=== PATIENT | male | born 1955 | race Caucasian/White ===

== ENCOUNTER 2019-12-09 06:50 | Outpatient (NON) | payer MEDICARE, OTHER, SELFPAY ==
[2019-12-09 18:38] LABS: SARS-CoV-2 RNA PCR Negative
== END 2019-12-09 06:51 ==
PROVIDERS: PCP Internal Medicine; Visit Provider Internal Medicine
DX: R68.89 Other general symptoms and signs (principal); Z20.828 Contact with and (suspected) exposure to other viral communicable diseases
CPT/HCPCS: 87635; C9803; U0003

== ENCOUNTER 2020-05-23 19:25 | Inpatient (IN) | payer MEDICARE, OTHER, SELFPAY ==
--- NOTE | ~2020-05-23 | XR_ITS ---
EXAMINATION: XR chest 1V portable INDICATION: Generalized chest pain TECHNIQUE: Portable AP chest at 2041 hours COMPARISON: 09/08/2017 FINDINGS: The lungs are free of acute opacities. Stable cardiomegaly is noted. There is no pleural ef fusion or pneumothorax. Median sternotomy wires are consistent with prior cardiac surgery. IMPRESSION: 1. Stable cardiomegaly. Reviewed, dictated and finalized at location A. INAL JUSTICE PROGRAM DIRECTOR IMPRESSION: 1. Stable cardiomegaly.
--- NOTE | ~2020-05-23 | CT_ITS ---
EXAMINATION: CT brain wo con INDICATION: Transient alteration of awareness COMPARISON: 05/26/2018 TECHNIQUE: Standard unenhanced head CT. The dose-length product (DLP) was 605.33 mGy-cm. The mA was a djusted according to patient size. Iterative reconstruction technique was employed. FINDINGS: There is no acute intraparenchymal hemorrhage. No evidence of mass lesion. No evidence of a cute infarction. There is mild periventricular and subcortical hypodensity probably related to small vessel ischemic disease. There is mild prominence of the sulci and ventricles related to cerebral atr ophy. Intracranial calcified cerebral atherosclerosis is noted. There are no extra-axial collections. There is no mass effect or midline shift. Changes in the globes are likely from ocular lens surgery. There is mild mucosal thickening of the paranasal sinuses. IMPRESSION: 1. No acute intracranial abnormality. 2. Age related findings. Reviewed, dictated and finalized at location A. ER DEVELOPMENT ENGINEER
--- NOTE | ~2020-05-23 | CT_ITS ---
EXAMINATION: CT facial bones wo con DATE: 05/23/2020 20:41 INDICATION: Facial pain, initial encounter TECHNIQUE: Computed tomography (CT) of the facial bones and maxillofacial region was performed withou t intravenous contrast. The dose-length product (DLP) was 497.66 mGy-cm. Automated exposure control a nd iterative reconstruction technique were employed. COMPARISON: None. FINDINGS: There are comminuted an displaced bilateral nasal bone fractures. There are 5 mm of rightwa rd deviation of the nasal septum. There is minimal opacification of the ethmoidal air cells. No addit ional facial fracture is identified. The globes are intact. The orbits are normal. There are fluid le vels in the maxillary sinuses. The bilateral ostiomeatal complexes are occluded. There is mild spondy losis of the visualized cervical spine. IMPRESSION: 1. Comminuted and displaced bilateral nasal bone fractures. 5 mm of rightward deviation of the nasal septum. Reviewed, dictated and finalized at location A. DRIVER IMPRESSION: 1. Comminuted and displaced bilateral nasal bone fractures. 5 mm of rightward d eviation of the nasal septum.
[2020-05-23 19:28] VITALS: BP 118/67; PULSE 64; RESP 16; TEMP 36.4; O2SAT 95
[2020-05-23 20:00] VITALS: BP 123/66; PULSE 66; RESP 13; O2SAT 98
--- NOTE | 2020-05-23 20:01 | ED.SYNCOPE ---
HPI - Syncope General Chief Complaint: Syncope Stated Complaint: fall-facial injury Time Seen by Provider: 05/23/20 19:32 Source: patient Mode of arrival: ambulatory Limitations: no limitations History of Present Illness HPI narrative: Patient is a 65-year-old male complaining of a syncopal episode prior to arrival. Patient states that he fell forward hitting his face on the ground, causing his nosebleed. According to his he is passed out twice over the past week. Patient states that his syncopal episodes only suddenly occur without any prior symptoms. Patient denies any headache, speech or visual disturbance, focal weakness, numbness, unsteady gait, chest pain, shortness of breath, abdominal pain, nausea, vomiting, diarrhea, fever or chills. Related Data Home Medications Medication Instructions Recorded Confirmed amitriptyline 10 mg tablet 10 mg PO ONCE 04/24/19 05/11/20 aspirin 81 mg tablet,delayed 81 mg PO DAILY 04/24/19 05/11/20 release brimonidine 0.15 % eye drops 1 drop EACH EYE Q8H 04/24/19 05/11/20 escitalopram oxalate 20 mg tablet 20 mg PO BID tablet 04/24/19 05/11/20 gabapentin 300 mg capsule 600 mg PO TID cap 04/24/19 05/11/20 insulin glargine 100 unit/mL (3 10 unit SUB-Q DAILY 04/24/19 05/11/20 mL) subcutaneous pen insulin lispro 100 unit/mL 1 sliding scale dose SUB-Q 04/24/19 05/11/20 subcutaneous solution USEASDIRECTD vancomycin 1.5 gram intravenous 1.5 gm IVPB Q24H 04/24/19 05/11/20 solution warfarin 3 mg tablet 3 mg PO DAILY 04/24/19 05/11/20 warfarin 4 mg tablet 4 mg PO DAILY 04/24/19 05/11/20 Allergies Allergy/AdvReac Type Severity Reaction Status Date / Time Sulfa (Sulfonamide Allergy Mild Hives Verified 05/10/20 14:34 Antibiotics) ibuprofen AdvReac Severe BAD RENAL Verified 05/10/20 14:34 FUNCTION Review of Systems Review of Systems: All systems reviewed & are unremarkable except as noted in HPI and below Constitutional: Constitutional: Denies body ache(s), Denies chills, Denies excessive sweating, Denies fatigue, Denies fever(s), Denies headache(s), Denies lethargy, Denies malaise, Denies weakness and Denies weight loss Eyes: Eyes: Denies blurry vision, Denies change in vision and Denies loss of vision ENT: Denies dizziness, Denies ear discharge, Denies headache(s), Denies lip swelling, Denies nasal congestion, Denies neck pain, Denies throat swelling and Denies tongue swelling Cardiovascular: Cardiovascular: Denies chest pain, Denies chest pain at rest, Denies chest pain with activity, Denies diaphoresis, Denies rapid heart rate, Denies edema, Denies irregular heart rhythm, Denies lightheadedness, Denies palpitations, Denies dyspnea and Denies dyspnea on exertion Respiratory: Respiratory: Denies chest congestion, Denies cough, Denies hemoptysis, Denies dyspnea and Denies dyspnea on exertion Gastrointestinal: Gastrointestinal: Denies abdominal pain, Denies melena, Denies hematochezia, Denies diarrhea, Denies nausea, Denies vomiting and Denies hematemesis Musculoskeletal: Musculoskeletal: Denies abnormal gait, Denies deformity, Denies joint swelling, Denies limited range of motion, Denies neck pain and Denies numbness Neurologic: Denies Abnormal speech present, Denies abnormal gait, Denies confusion, Denies dizziness, Denies headache(s), Denies focal weakness, Denies loss of vision, Denies numbness, Denies Other visual disturbances, Denies Sensory deficit (Neuro) and Denies weakness Psychiatric: Psychiatric: Denies confusion, Denies depression, Denies auditory hallucinations, Denies homicidal ideation and Denies suicidal ideation Endocrine: Endocrine: Denies cold intolerance, Denies excessive sweating, Denies fatigue, Denies heat intolerance and Denies palpitations Hematologic/Lymphatic: Hematologic/Lymphatic: Denies easy bleeding and Denies easy bruising Allergic/Immunologic: Allergic/Immunologic: Denies lip swelling, Denies throat swelling and Denies tongue swelling PMFSH
[2020-05-23 21:00] VITALS: BP 119/72; PULSE 66; RESP 14; O2SAT 99
[2020-05-23 21:00] LABS: Basophils Absolute Auto 0.1 K/mm3 (0.0-0.1); Basophils Percent Auto 0.9 % (0.2-1.2); Eosinophils Absolute Auto 0.3 K/mm3 (0-0.3); Eosinophils Percent Auto 3.7 % (0-4.4); Hematocrit 28.2 % (42.0-52.0); Hemoglobin 9.1 g/dL (14.0-18.0); Immature Granulocyte Absolute 0.02 K/mm3 (0.00-0.031); Immature Granulocyte Percent A 0.2 % (0-0.5); Lymphocytes Absolute Auto 1.89 K/mm3 (0.9-3.2); Lymphocytes Percent Auto 21.6 % (18.3-44.2); Mean Corpuscular HGB Conc 32.3 g/dl (32-36); Mean Corpuscular Hemoglobin 34.6 pg (26-34); Mean Corpuscular Volume 107.2 fl (80-100); Mean Platelet Volume 11.3 fl (7.4-10.4); Monocytes Absolute Auto 0.9 K/mm3 (0.1-0.6); Monocytes Percent Auto 10.7 % (2.6-8.5); Neutrophils Absolute Auto 5.5 K/mm3 (1.3-6.7); Neutrophils Percent Auto 62.9 % (45.5-73.1); Platelet Count Result 179 k/mm3 (150-375); Red Blood Count 2.63 M/mm3 (4.6-6.20); Red Cell Distribution Width 13.4 % (11.5-14.5); White Blood Count 8.8 K/mm3 (4.5-10.0)
[2020-05-23 21:10] LABS: Alanine Aminotransferase 31 U/L (4-50); Albumin Level 4.1 g/dL (3.5-5.1); Alkaline Phosphatase 71 U/L (38-126); Anion Gap 10 mmol/L (8-16); Aspartate Amino Transferase 47 U/L (17-59); Bilirubin,Total 0.4 mg/dL (0.2-1.3); Blood Urea Nitrogen 52 mg/dL (9-20); Calcium 8.2 mg/dL (8.4-10.2); Carbon Dioxide 26 mmol/L (22-30); Chloride 98 mmol/L (98-107); Estimated CRCL calculation 9 ml/min; Estimated Glomerular Filt Rate 7; Glucose 182 mg/dL (75-110); INR 1.9; Partial Thromboplastin Time 35.8 SECONDS (22.3-36.8); Prothrombin Time 22.1 Seconds (11.1-14.7); Sodium 134 mmol/L (137-145)
[2020-05-23 21:26] LABS: Troponin I 0.094 ng/mL (0.000-0.034)
--- NOTE | 2020-05-23 21:28 | ECG_ITS ---
Measurements Intervals [place] Rate: 64 P: -6 CO: 256 QRS: 94 QRSD: 140 T: 27 QT: 465 QTc: 482 Interpretive Statements SINUS RHYTHM WITH FIRST DEGREE AV BLOCK RIGHT AXIS DEVIATION RIGHT BUNDLE BRANCH BLOCK BASELINE ARTIFACT- I, II, III, AVR, AVL, AVF, V1 ABNORMAL ECG Electronically Signed On 05-24-2020 6:55:28 [employer] SALES AGENT by Destin Barragan D.O.
[2020-05-23 22:00] VITALS: BP 115/67; PULSE 63; RESP 14; O2SAT 96
[2020-05-23 23:00] VITALS: BP 115/65; PULSE 65; RESP 13; O2SAT 97
[2020-05-23] MEDS: HYDROcodone/acetaminophen (*CRX) 5-325 MG TABLET 1 TAB PO (23:18)
[2020-05-23] MEDS: ceFAZolin SODIUM 1 GM VIAL IV PUSH (23:21)
[2020-05-23 23:50] VITALS: BP 131/48; PULSE 64; RESP 16; TEMP 36; O2SAT 98; BMI 32.1
[2020-05-24] VITALS (17 sets, daily range): BP systolic 95–128; BP diastolic 43–69; PULSE 58–65; RESP 16–20; TEMP 36–36.4; O2SAT 97–100
[2020-05-24 01:27] LABS: Troponin I 0.088 ng/mL (0.000-0.034)
--- NOTE | 2020-05-24 02:52 | PM.IMHP ---
H&P: HPI History of Present Illness Date/Time: 05/24/20 04:00 Chief Complaint: Syncope Narrative: Haja Diego is a 65 year old male with a past medical history of end-stage renal disease on hemodialysis, chronic hypotension, CHF with preserved ejection fraction, coronary artery disease and insulin-dependent diabetes mellitus who presented to the ER after having a syncopal episode. The patient reports that over the last 2 weeks he has had 3 syncopal episodes. The 1st episode he was sitting on at [place] in and the next thing he knew he was on the floor. He does not know how long he was unconscious during that episode. He also had an episode where he was standing at his back door letting his dog out and when he woke up he was on the floor. On the evening of the the patient was at the local grocery store and was going to put his cart back in the cart return. He did not have any warning and the next thing he knew he woke up on the ground. When he woke up he reported that he felt a little bit tired but just wanted to get up and go home. The patient thinks that his reported to in that he was passed out for about 5 minutes. The patient reports that he is usually back at his baseline when he wakes up. He denies any chest pain, palpitations, shortness of breath. He had had multiple other episodes of syncope in the past but not nearly this frequently. He had 30 day Holter monitor performed by his ultrasound spec Dr. Redding performed late last year. He also had a cardiac catheterization in January 2020 that demonstrated no acute process per the patient's report. His last hemoglobinBut he does not know with the exact number was. He was supposed to have an outpatient hemoglobin A1c at the beginning of June as this is when his insurance will pay for it. He reports that his glucoses over the last 2 weeks have been running below 200. His insulin pump was increased from 0.8 units an hour to 0.9 units/hour 2 and half to 3 weeks ago. His glucoses within target range on presentation to the ER. He reports that he was started on some additional phosphate binders recently due to persistent hyperkalemia. On arrival to the ER the patient's potassium was within normal limits. Review of Systems Review of Systems: Narrative: 12 systems were reviewed with pertinent positives and negatives per HPI. Except as documented in the HPI, all other systems were reviewed and are negative. 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 The patient is on the renal transplant list at [place]. Wednesday managed by Dr. Aguiar Glaucoma Hyperlipidemia Memory loss or impairment Myocardial infarction 2003 and 2010 Surgical History Surgical History (Updated 05/24/20 @ 03:47 by Erma Schmitz DO) H/O inguinal hernia repair At age 6 History of bilateral cataract extraction History of heart artery stent X8 prior to CABG History of nasal surgery 1988 History of pericardiectomy Hx of CABG 3 vessel CABG [address] [facility] Status post open reduction with internal fixation of fracture Left hand fracture in 1981 Family History Family History (Updated 05/24/20 @ 03:55 by Erma Schmitz DO) Sibling Family history of cardiac disorder Congestive heart fa
[2020-05-24 03:05] LABS: Glucose Point of Care 168 (65-105)
--- NOTE | 2020-05-24 04:54 | PC.NURSE ---
This patient, Haja Diego, was admitted to IMU Room 206-02. Patient/family oriented to hospital policies and general routines including ID bracelet, bed and alarms, visiting hours, pain management, procedures, bathroom and other care routines, personal items, smoking policy, room service/diet, and visiting hours. Information on how to activate the Rapid Response Team has been discussed. Patient/Family are encouraged to report perceived risks to care and to ask questions if they do not understand what they are told or what they should do.
[2020-05-24 05:39] LABS: Troponin I 0.095 ng/mL (0.000-0.034)
[2020-05-24 06:12] LABS: Anion Gap 11 mmol/L (8-16); Blood Urea Nitrogen 57 mg/dL (9-20); Calcium 8.2 mg/dL (8.4-10.2); Carbon Dioxide 25 mmol/L (22-30); Chloride 99 mmol/L (98-107); Estimated CRCL calculation 10 ml/min; Estimated Glomerular Filt Rate 6; Glucose 169 mg/dL (75-110); Magnesium 1.8 mg/dL (1.6-2.3); Phosphorus 5.3 mg/dL (2.5-4.5); Potassium 3.5 mmol/L (3.4-5.0); Sodium 135 mmol/L (137-145)
[2020-05-24] MEDS: MIDODRINE HCL 2.5 MG TABLET 5 MG PO ×3 (08:36→17:35)
[2020-05-24] MEDS: PANTOPRAZOLE 40 MG TABLET PO (08:36)
[2020-05-24] MEDS: CALCIUM ACETATE 667 MG TABLET PO (08:36)
[2020-05-24] MEDS: GABAPENTIN 300 MG CAPSULE 600 MG PO ×3 (08:36→17:35)
[2020-05-24] MEDS: allopurinoL 100 MG TABLET PO (08:37)
--- NOTE | 2020-05-24 09:05 | PM.CNNEP ---
Assessment and Plan Assessment and plan (1) Chronic anticoagulation: Code(s): Z79.01 - senior care (current) use of anticoagulants Status: Acute (2) ESRD (end stage renal disease) on dialysis: Code(s): N18.6 - End stage renal disease; Z99.2 - Dependence on renal dialysis Status: Acute Assessment and Plan: C/O BY OCC INTRADIALYTIC HYPOTENSION- ALSO HAS CHRONIC HYPOTENSION AND TAKES MIDODRINE 5MG TID (3) Fracture of nasal bones, initial encounter for open fracture: Code(s): S02.2XXB - Fracture of nasal bones, initial encounter for open fracture Status: Acute (4) Obesity (BMI 30.0-34.9): Code(s): E66.9 - Obesity, unspecified Status: Acute (5) Syncope and collapse: Code(s): R55 - Syncope and collapse Status: Acute (6) Anemia: Qualifiers: Anemia type: unspecified type Qualified Code(s): D64.9 - Anemia, unspecified Code(s): D64.9 - Anemia, unspecified Status: Acute (7) Atherosclerotic heart disease of [place] coronary artery without angina pectoris: Code(s): I25.10 - Atherosclerotic heart disease of [place] coronary artery without angina pectoris Status: Acute (8) Diabetic polyneuropathy associated with type 1 diabetes mellitus: Code(s): E10.42 - Type 1 diabetes mellitus with diabetic polyneuropathy Status: Acute (9) Secondary hypophosphatemia: Code(s): E83.39 - Other disorders of phosphorus metabolism Status: Acute Additional Plan 1. hd today 2. holding coumadin given nasal fracture and poss need for pacemaker -i agree that the sudden syncope without warning seems much more likely cardiac related. 3. avoid hypotension 4. give epogen/ Retacrit. 5. his phos binding meds used to be CaAcetate/ PHOSLO THEN AURYXIA THEN VELPHORO- ALL FAILED BUT NOW ON FOSRENOL WITH GREAT RESULT- PHOS DOWN FROM 9 TO 10 TO 5.9 I PTH STILL TOO HIGH 1200 BUT I COULD NOT PUT HIM SENSIPAR B/C OF LOW CALCIUM- I JUST CHECKED W HIS HD CLINIC AND HIS HECTOROL IS ON HOLD SINCE EARLY APRIL 27. HE TAKES MIDODRINE PRE DIALYSIS 5MG TID. History of Present Illness Reason for Consult Consult date: 05/24/20 Reason for consult: Other (65 yo wm on dialysis for esrd due to dmii and atherosclerotic dz - hd about 5-6 years at [facility] 1ST SHIFT [phone] OVER THE LAST 30 DAYS HE HAS HAD 2-3 EPISODES OF PASSING OUT WITHOUT ANY WARNING AND NO PRESYNCOPE SX'S OR SEIZURE ACTIVITY.) Chief Complaint Chief complaint: Syncope, Bilat. Nasal Bone Fractures, Review of Systems Cardiovascular: Comments: specifically denies any chest pain and palpitations. also had holter monitor done within last 1-3 months for similar presentation but was negative. Denies any diarrhea, cramping. 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 The patient is on the renal transplant list at [place]. Wednesday managed by Dr. Aguiar Glaucoma Hyperlipidemia Memory loss or impairment Myocardial infarction 2003 and 2010 Surgical History Surgical History (Updated 05/24/20 @ 03:47 by Erma Schmitz DO) H/O inguinal hernia repair At age 6 History of bilateral cataract extraction History of heart artery stent X8 prior to CABG History of nasal surgery 1988
--- NOTE | 2020-05-24 10:39 | PHAR ---
THE FOLLOWING HOME MEDS HAVE BEEN VERIFIED BY PHARMACY: VELPHORO (SUCROFERRIC OXYHYDROXIDE) 500 MG CHEWABLE TABLETS AURYXIA (FERRIC CITRATE) 210 MG TABLETS LANTHANUM CARBONATE 1000 MG CHEWABLE TABLETS VELTASSA (PATIROMER) 8.4 GM PACKETS FOR ORAL SUSPENSION
[2020-05-24 11:41] LABS: Hepatitis B Surface Antigen Negative (Negative)
[2020-05-24 11:47] LABS: HAV RESULT Negative (Negative); Hepatitis B Core IgM Result Negative (Negative)
[2020-05-24 11:59] LABS: Hepatitis C Virus Antibody Negative (Negative)
--- NOTE | 2020-05-24 12:22 | WPDCN ---
Assessment and Plan Assessment and plan (1) Fracture, nose, open: Code(s): S02.2XXB - Fracture of nasal bones, initial encounter for open fracture Status: Acute Additional Plan Pt may gradually remove dried blood from his nose. Follow up with Dr Campuzano early next week. HPI Data of Consult Date/Time: 05/24/20 12:22 Requesting Physician: Erma Schmitz DO Primary Care Provider: Cristhian Muhammad DO Consult Narrative Narrative: Haja Diego is a 65 year old male admitted after his 2nd syncopal episode in a week. Fell this time in a parking lot while shopping with his . Now has a nasal fracture from striking the ground with his face. Is an end stage diabetic with elevated creatinine of 7.9. Is on warfarin with INR of 1.9. CT facial bones evaluated indicating bilateral displaced nasal side wall fractures and septal deviation to the right. Known history of cardiac disease. History of remote nasal fracture with septal surgery. He is not certain if one airway was more patent than the other. Is alert at this time I'm seeing him. present. Burial Agent has just left the room. 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 The patient is on the renal transplant list at [place]. Wednesday managed by Dr. Aguiar Fracture, nose, open Glaucoma Hyperlipidemia Memory loss or impairment Myocardial infarction 2003 and 2010 Surgical History Surgical History (Updated 05/24/20 @ 03:47 by Erma Schmitz DO) H/O inguinal hernia repair At age 6 History of bilateral cataract extraction History of heart artery stent X8 prior to CABG History of nasal surgery 1988 History of pericardiectomy Hx of CABG 3 vessel CABG 2010 at [facility] Status post open reduction with internal fixation of fracture Left hand fracture in 1981 Family History Family History (Updated 05/24/20 @ 03:55 by Erma Schmitz DO) Sibling Family history of cardiac disorder Congestive heart failure Prolonged QT interval 1 sister Sudden cardiac Another sister Acute myocardial infarction Sister Leonie Mother Diabetes mellitus Aneurysm Father Cerebrovascular accident Sibling Asthma Sister Arin Social History Social History (Updated 05/24/20 @ 03:58 by Erma Schmitz DO) Social History: He has been for 37 years. He has 2 children who are healthy. He used to rarely drinks alcohol and only in moderation. He is retired from the [employer] department of a [employer] - [place]. Primary care physician: Dr. Cristhian Muhammad Code status: Full code Surrogate decision maker: Heydi () Smoking packs per day: 2 Smoking cigarettes per day: 40.0 Years smoked: 2 Smoking pack-years: 4.00 Smoking status: Former smoker Tobacco type: cigarettes Second hand tobacco smoke exposure: No Smoking end date: 03/22/80 Alcohol intake: former Drinks per week: 7 Substance use: never Spiritual care concerns: No Meds Home Medications and Allergies Home Medications Medication Instructions Recorded Confirmed Type aspirin 81 mg tablet,delayed 81 mg PO DAILY 04/24/19 05/24/20 History release escitalopram oxalate 20 mg tablet 20 mg PO DAILY tablet
--- NOTE | 2020-05-24 12:30 | PM.CNCAR ---
Assessment and Plan Additional Plan This is a 65-year-old man with underlying coronary artery disease, surgical revascularization as detailed above he has been having recurrent syncopal episodes for several months which are now increasing in frequency he had a significant injury to his nose fracturing the nose and prompting admission to the hospital. His electrocardiogram does show evidence of conduction system disease with first-degree AV block and right bundle branch block with left posterior fascicular block. It is therefore highly highly likely that he is having bradyarrhythmia/pauses prompting the syncopal episodes. While the patient is in the hospital I believe we should keep him on telemetry to of course to ensure that we do not identify pathology that would explain this syncope. If the patient is discharged I would recommend repeating a 30 day event monitor as the events are occurring with significant frequency now we should be able to identify the etiology with another 30 day monitor. I believe he should be taken off of warfarin there is no obvious cardiovascular indication at this time for ongoing anticoagulation and given his syncope and falling he is at high risk for hemorrhagic complications. A suppose I would also recommend stopping the low-dose of diltiazem that he is taking Jorge Luis Redding MD [facility] History of Present Illness History of Present Illness Consult date/time: 05/24/20 12:30 Reason For Visit: Syncope, Bilat. Nasal Bone Fractures, Narrative: This is a very pleasant 65-year-old man with known coronary artery disease I am seeing him at the request of the hospitalist because of syncopal episode. Patient is known to me with his ischemic heart disease and has been followed in the office for about 10 years. He has been doing relatively well cardiac gates until several months ago when he began to experience syncopal episodes. He mentioned this to me during an office visit in the fall. We had him wear a 30 day event monitor and did not find any pathologic or problematic arrhythmias. He was in sinus rhythm with first-degree AV block and in intraventricular conduction delay but no pauses that would explain a syncopal episode. His states that in the last 3 weeks he has had at least 3 additional syncopal episodes he came in yesterday he was at the grocery store shopping with his he was in the parking lot after they finished to put the cart in the [place] in the parking lot and he abruptly had a loss of consciousness falling on his face and fracturing his nose. She called 911 he was brought to the emergency room evaluated and admitted. The patient is systemically anticoagulated with warfarin and is being managed by his PCP. He is on warfarin because of a history of lower extremity DVT but he and his tell me that episode was about 10 years ago. He does not have a cardiac reason to be anticoagulated. Regarding his coronary artery disease the patient underwent emergency right coronary intervention about 10 years ago in the setting of an acute inferior wall infarction which was successful. He then presented with ischemic symptoms was found to have worsening multivessel coronary disease in 2015 and was referred for surgical revascularization. He received an internal mammary graft to the LAD a radial graft to the obtuse marginal and a saphenous vein graft to the posterior descending artery. He later in 2015 had some or ischemic she chest pain he was found to have a stenosis in his circumflex distal to the anastomosis of his OM radial artery graft and underwent angioplasty of this lesion. The lesion was technically difficult to balloon dilate and therefore was not treated with stenting. His other major comorbidity has been chronic kidney disease which has been steadily worsening he now is on kidney dialysis for about 3 years and is being evaluated has been evaluated by the transplant service at [facility]. He is on the transpla
[2020-05-24] MEDS: calcitrioL 0.25 MCG CAPSULE 1 MCG PO (12:54)
[2020-05-24] MEDS: ESCITALOPRAM OXALATE 10 MG TABLET 20 MG PO (12:54)
--- NOTE | 2020-05-24 16:12 | PM.IMPN ---
Progress Note: A&P Assessment and Plan (1) Syncope and collapse: Code(s): R55 - Syncope and collapse Status: Acute (2) Fracture of nasal bones, initial encounter for open fracture: Code(s): S02.2XXB - Fracture of nasal bones, initial encounter for open fracture Status: Acute Assessment and Plan: 05/24/20 16:12 patient is 65-year-old male with history of end-stage renal disease on hemodialysis seen by his medical voucher clerk and will have x-ray gel dialysis, patient been having recurrent syncopal episode and recently in 1 week he has had 2 syncopal episode with collapse yesterday patient while in the grocery parking lot had a syncopal episode fell forward on his face and has a nasal fracture patient started on cefazolin to prevent any infection seen by plastic surgeon and will follow-up in 1 week, patient seen by structural layout worker and patient has been evaluated in the past with a Holter monitor without any diagnosis but this time structural layout worker suspect the patient may have a bradycardiac arrhythmia resulting in syncopal episodes will monitor patient on telemetry while in the hospital and patient will be discharged home on Holter monitor to reassess the rhythm and any syncopal episodes. Patient is clinically stable will continue to monitor and further recommendation to follow. Patient is on chronically anticoagulated with a warfarin seen by structural layout worker is recommended to stop the anticoagulation as patient has no indication in terms of cardiovascular and patient is high risk a cerebral injury with recurrent syncopal episode with collapse, also recommended to stop low-dose diltiazem (3) ESRD (end stage renal disease) on dialysis: Code(s): N18.6 - End stage renal disease; Z99.2 - Dependence on renal dialysis Status: Acute Assessment and Plan: Patient seen by Nephrology and will have scheduled dialysis (4) Chronic anticoagulation: Code(s): Z79.01 - ct scan technician (current) use of anticoagulants Status: Acute Assessment and Plan: Seen by structural layout worker recommending to stop anticoagulation. Additional Plan The patient has had recurrent syncope and collapse. Given the patient's symptoms I most concern for cardiogenic cause of the patient's syncope. His orthostatic vital signs were normal. Patient has not had any evidence of cardiac arrhythmia since admission the hospital. He had had a prior 30 day heart monitor that did not demonstrate significant arrhythmias per his report. Will consult cardiology for further recommendations given the increasing frequency of syncope. Will continue to monitor the patient's cardiac rhythm on telemetry. The patient does have open fracture of his nasal bones with rightward deviation. The patient technically a trauma patient given the open fracture. Over plastic surgery has agreed to evaluate the patient. Given the patient's syncopal events I do not feel comfortable providing surgical clearance at this time of will await further recommendations from Cardiology. The patient's Coumadin and aspirin on hold in the event of possible surgical intervention. Nephrology has been consulted for management of hemodialysis. The patient has been admitted as observation status. This document was completed by using [employer] speech recognition software, therefore, beveling machine operator variances may occur. Despite proof reading and review of records errors may persist. Subjective Date/time seen: 05/24/20 16:12 patient is 65-year-old male with history of end-stage renal disease on hemodialysis seen by his medical voucher clerk and will have x-ray gel dialysis, patient been having recurrent syncopal episode and recently in 1 week he has had 2 syncopal episode with collapse yesterday patient while in the grocery parking lot had a syncopal episode fell forward on his face and has a nasal fracture patient started on cefazolin to prevent any infection seen by plastic surgeon and will follow-up in
[2020-05-24] MEDS: MIRTAZAPINE 15 MG TABLET PO (20:52)
[2020-05-24 21:29] LABS: Glucose Point of Care 234 (65-105)
[2020-05-24] MEDS: MELATONIN 3 MG TABLET PO (23:37)
[2020-05-25] VITALS (28 sets, daily range): BP systolic 110–142; BP diastolic 58–74; PULSE 57–79; RESP 16–20; TEMP 35.5–37.2; O2SAT 97–100
[2020-05-25 05:47] LABS: Albumin Level 3.8 g/dL (3.5-5.1); Anion Gap 12 mmol/L (8-16); Blood Urea Nitrogen 71 mg/dL (9-20); Calcium 8.2 mg/dL (8.4-10.2); Carbon Dioxide 24 mmol/L (22-30); Chloride 101 mmol/L (98-107); Estimated CRCL calculation 8 ml/min; Estimated Glomerular Filt Rate 5; Glucose 117 mg/dL (75-110); Potassium 4.1 mmol/L (3.4-5.0); Sodium 137 mmol/L (137-145)
--- NOTE | 2020-05-25 07:31 | PM.PNNEP ---
Progress Note: A&P Assessment and Plan (1) Fracture, nose, open: Code(s): S02.2XXB - Fracture of nasal bones, initial encounter for open fracture Status: Acute (2) Chronic anticoagulation: Code(s): Z79.01 - bed bug exterminator (current) use of anticoagulants Status: Acute (3) ESRD (end stage renal disease) on dialysis: Code(s): N18.6 - End stage renal disease; Z99.2 - Dependence on renal dialysis Status: Acute (4) Fracture of nasal bones, initial encounter for open fracture: Code(s): S02.2XXB - Fracture of nasal bones, initial encounter for open fracture Status: Acute (5) Anemia: Qualifiers: Anemia type: unspecified type Qualified Code(s): D64.9 - Anemia, unspecified Code(s): D64.9 - Anemia, unspecified Status: Acute (6) Atherosclerotic heart disease of [place] coronary artery without angina pectoris: Code(s): I25.10 - Atherosclerotic heart disease of [place] coronary artery without angina pectoris Status: Acute (7) 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 pt was not able to get dialysis yesterday- will be this am and heparin free 2. no further Calcitriol- was given a dose yesterday to substitute for in-cente dialyais HECTOROL 3. REGLAN 5MG IV Q 6HRS X 2 DOSES AND THEN PRN -ALSO ENCOURAGE PT TO SPIT. 4. PT TO GET AN EVENT MONITOR PLACED. 5. AVOID MEDS WHICH INTERFER W HEART RHYTHM HOPEFULLY HOME LATER- HE IS CLEAR FROM MY STANDPT. Time Spent With Patient Time with patient: 15 - 25 minutes Subjective Date/time seen: 05/25/20 07:31- pt w nausea overnight. nurse did report some prolongation of the QTC interval Exam HENMT: Head: periorbital ecchymosis General nose exam: Other nasal findings present (abrasion on bridge of nose ) Chest: Chest palpation & inspection: normal inspection of the chest Breast/axilla inspection: normal inspection of the breasts GI: Inspection: normal to inspection GI Palp: Yes Other GI palpation findings present (not distended and not ttp) Auscultation: abnormal bowel sounds (hypoactive) Extrem: General: normal to inspection Objective Data Vital Signs Vital Signs: Vital Signs - 24 hr 05/24/20 08:00 05/24/20 10:00 05/24/20 12:00 Temperature 36.2 C L Pulse Rate 61 65 60 Respiratory Rate 16 Blood Pressure 117/63 Pulse Oximetry 97 05/24/20 13:00 05/24/20 14:00 05/24/20 16:00 Temperature 36.4 C L 36.2 C L Pulse Rate 65 64 64 Respiratory Rate 16 18 Blood Pressure 128/69 122/58 L Pulse Oximetry 100 98 05/24/20 17:47 05/24/20 20:00 05/24/20 22:00 Temperature 36.0 C L Pulse Rate 64 61 58 L Respiratory Rate 16 Blood Pressure 106/57 L Pulse Oximetry 100 05/24/20 23:39 05/24/20 23:45 05/25/20 00:00 Temperature 36.3 C L Pulse Rate 61 61 57 L Respiratory Rate 20 20 Blood Pressure 95/43 L Pulse Oximetry 100 100 05/25/20 01:47 05/25/20 03:17 05/25/20 03:19 Temperature 36.4 C Pulse Rate 58 L 71 71 Respiratory Rate 20 20 Blood Pressure 124/60 Pulse Oximetry 97 97 05/25/20 04:00 05/25/20 06:00 Temperature Pulse Rate 63 73 Respiratory Rate Blood Pressure Pulse Oximetry Intake/Output Intake/Output: Intake & Output 05/22/20 05/23/20 05/24/20 05/25/20 23:59 23:59 23:59 23:59 Intake Total 1060 200 Output Total 0 0 Balance 1060 200 Meds/Results Medications: Active Medications Generic Name Dose Route Start Last Admin Trade Name Freq PRN Reason Stop Dose Admin Allopurinol 100 mg 05/24/20 08:00 05/24/20 08:37 Allopurinol 100 Mg Tablet PO 100 mg DA
[2020-05-25] MEDS: METOCLOPRAMIDE HCL INJ 10 MG/2 ML VIAL 5 MG IV PUSH (08:54)
[2020-05-25] MEDS: allopurinoL 100 MG TABLET PO (09:17)
[2020-05-25] MEDS: ESCITALOPRAM OXALATE 10 MG TABLET 20 MG PO (09:17)
[2020-05-25] MEDS: PANTOPRAZOLE 40 MG TABLET PO (09:17)
[2020-05-25] MEDS: GABAPENTIN 300 MG CAPSULE 600 MG PO (09:17)
--- NOTE | 2020-05-25 09:17 | PM.PNCARD ---
Progress Note: A&P Additional Plan 65-year-old man with: Recurrent syncope I suspect this is resulting from Louie arrhythmias given his history of coronary disease and ECG evidence of conduction system disease with first-degree AV block and bifascicular block. We however cannot justify a pacemaker unless we see Louie arrhythmias that would explain this. I am going to stop his diltiazem at this point as I mentioned above. His warfarin should also be. He does not have a cardiac reason for lifelong anticoagulation. I am going to have him come to the office on Wednesday for a 2nd 30 day event monitor as he and his state these episodes are now happening once or twice per week we should not have difficulty establishing a diagnosis and avoid placing an implanted loop recorder in him. I will see him in follow-up after this data has been collected or if we see pathologic Louie arrhythmias that would warrant pacing. Jorge Luis Redding MD [facility] Subjective Date/time seen: 05/25/20 09:17 Interval history: Follow-up visit in this 65-year-old man with coronary artery disease now with recurrent syncopal episodes which have not been explained. Feels well this morning is planning to be discharged after hemodialysis. Telemetry has not demonstrated any arrhythmias since admission which would create syncope. Because of his conduction system disease I have recommended stopping his diltiazem. He is on a low dosage of this but with recurrent syncope this drug should be stopped Exam Const: General: comfortable and no acute distress HENMT: Mouth: Yes moist mucous membranes Eyes: Sclera: sclerae normal Pupils: Equal, round and reactive pupils present Neck: Neck: supple and no JVD Resp: Effort & Inspection: normal respiratory effort Auscultation: clear to auscultation bilaterally Cardio: Rate: regular rate Rhythm: regular rhythm GI: GI Palp: Yes Soft to palpation Auscultation: normal bowel sounds Skin: General skin exam: normal color Neuro: Cognition (Neuro): normal cognition Extrem: General: normal to inspection Objective Data Vital Signs Vital Signs: Vital Signs - 24 hr 05/24/20 10:00 05/24/20 12:00 05/24/20 13:00 Temperature 36.4 C L Pulse Rate 65 60 65 Respiratory Rate 16 Blood Pressure 128/69 Pulse Oximetry 100 05/24/20 14:00 05/24/20 16:00 05/24/20 17:47 Temperature 36.2 C L Pulse Rate 64 64 64 Respiratory Rate 18 Blood Pressure 122/58 L Pulse Oximetry 98 05/24/20 20:00 05/24/20 22:00 05/24/20 23:39 Temperature 36.0 C L 36.3 C L Pulse Rate 61 58 L 61 Respiratory Rate 16 20 Blood Pressure 106/57 L 95/43 L Pulse Oximetry 100 100 05/24/20 23:45 05/25/20 00:00 05/25/20 01:47 Temperature Pulse Rate 61 57 L 58 L Respiratory Rate 20 Blood Pressure Pulse Oximetry 100 05/25/20 03:17 05/25/20 03:19 05/25/20 04:00 Temperature 36.4 C Pulse Rate 71 71 63 Respiratory Rate 20 20 Blood Pressure 124/60 Pulse Oximetry 97 97 05/25/20 06:00 05/25/20 08:57 Temperature Pulse Rate 73 Respiratory Rate Blood Pressure Pulse Oximetry 97 Intake/Output Intake/Output: Intake & Output 05/22/20 05/23/20 05/24/20 05/25/20 23:59 23:59 23:59 23:59 Intake Total 1060 200 Output Total 0 0 Balance 1060 200 Meds/Results Medications: Active Medications Generic Name Dose Route Start Last Admin Trade Name Freq PRN Reason Stop Dose Admin Allopurinol 100 mg 05/24/20 08:00 05/25/20 09:17 Allopurinol 100 Mg Tablet PO 100 mg DAILY@0800 ESTHER Administration Escitalopram Oxalate 20 mg 05/24/20 09:00 05/24/20 12:54 Escitalopram Oxalate 10 Mg Tablet PO 20 mg DAILY ESTHER Administration Gabapentin 600 mg 05/24/20 09:00 05/25/20 09:17 Gabapentin 300 Mg Capsule PO 600 mg TID ESTHER Administration Albumin Human 50 mls @ 999 mls/hr 05/24/20 09:29 Albutein IVPB 05/25/20 09:30 Q10M PRN HYPOTENSION Cefazolin Sodium 2
[2020-05-25] MEDS: MIDODRINE HCL 2.5 MG TABLET 5 MG PO (09:18)
[2020-05-25 09:19] LABS: Glucose Point of Care 157 (65-105)
[2020-05-25] MEDS: EPOETIN ALFA-EPBX 20,000 UNITS/ML VIAL 20000 UNITS IV PUSH (11:54)
--- NOTE | 2020-05-25 14:32 | PC.NURSE ---
Patient returned to room from dialysis. Oriented x4. No complaints of chest pain/shortness of breath. VS: bp 117/61, r 16, hr 79, temp 98.1.
[2020-05-25 14:33] LABS: Glucose Point of Care 85 (65-105)
--- NOTE | 2020-05-25 14:49 | PM.DS ---
DS: Admitting Diagnosis Admitting Diagnosis Admitting Diagnosis: Chief Complaint: Passed out again DS: Discharge Diagnosis Discharge Diagnosis (1) Syncope and collapse: Code(s): R55 - Syncope and collapse Status: Acute (2) Fracture of nasal bones, initial encounter for open fracture: Code(s): S02.2XXB - Fracture of nasal bones, initial encounter for open fracture Status: Acute Assessment and Plan: 05/24/20 16:12 patient is 65-year-old male with history of end-stage renal disease on hemodialysis seen by his compliance paralegal and will have x-ray gel dialysis, patient been having recurrent syncopal episode and recently in 1 week he has had 2 syncopal episode with collapse yesterday patient while in the grocery parking lot had a syncopal episode fell forward on his face and has a nasal fracture patient started on cefazolin to prevent any infection seen by plastic surgeon and will follow-up in 1 week, patient seen by commissary officer and patient has been evaluated in the past with a Holter monitor without any diagnosis but this time commissary officer suspect the patient may have a bradycardiac arrhythmia resulting in syncopal episodes will monitor patient on telemetry while in the hospital and patient will be discharged home on Holter monitor to reassess the rhythm and any syncopal episodes. Patient is clinically stable will continue to monitor and further recommendation to follow. Patient is on chronically anticoagulated with a warfarin seen by commissary officer is recommended to stop the anticoagulation as patient has no indication in terms of cardiovascular and patient is high risk a cerebral injury with recurrent syncopal episode with collapse, also recommended to stop low-dose diltiazem (3) ESRD (end stage renal disease) on dialysis: Code(s): N18.6 - End stage renal disease; Z99.2 - Dependence on renal dialysis Status: Acute Assessment and Plan: Patient seen by Nephrology and will have scheduled dialysis (4) Chronic anticoagulation: Code(s): Z79.01 - half-way (current) use of anticoagulants Status: Acute Assessment and Plan: Seen by commissary officer recommending to stop anticoagulation. DS: Summary Hospital Course Reason for hospitalization: Chief Complaint: Passed out again Narrative: Haja Diego is a 65 year old male with a past medical history of CHF, coronary artery disease, first-degree AV block, and multiple falls and a family history of short QT who presented to the ER for 2nd time within the last 4 days for recurrence syncope. The patient's syncope is suspected to be cardiogenic in nature. The patient had previously had a 30 day event monitor that did not demonstrate any events but over the last 3 weeks his episodes of syncope a become much more frequent. He has now had 4 5 episodes of syncope within the last 2 weeks. On May 24 the resulted in a open nasal fracture. The patient was monitored until the and was discharged home with a plan for 30 day event monitor to be placed on 05/27/2020. However, the patient was standing in his kitchen today and had a syncopal episode. He fell and hit his face again. He had a loss of consciousness lasting approximately 1-2 minute. The patient reports that his glucose was low prior to his syncopal event but he had time to drink despite before had a syncopal event. His glucose when he arrived to the ER was 240. When he came to he was back to his normal mental status/alert oriented x3. He denies any chest pain or palpitations prior to his syncopal event. During his last hospitalization is Cardizem was discontinued. His COVID was also discontinued as he had no cardiac indication for lifelong anticoagulation. The patient is concerned because he has a family history of prolonged QT. He has multiple family members including siblings and nieces and nephews who have pacemakers and defibrillators in place. Patient does not want to be discharged home t
== END 2020-05-25 15:30 | disposition home or self-care (01) | DRG 312 ==
LOC: ANHED 22:15 → ANHIMU 22:33
PROVIDERS: Internal Medicine Nephrology; Admitting Provider Internal Medicine; Emergency Provider Emergency Medicine; PCP Internal Medicine; Visit Provider Family Medicine
DX: R55 Syncope and collapse (principal); N18.6 End stage renal disease; S02.2XXB Fracture of nasal bones, initial encounter for open fracture; I13.2 Hypertensive heart and chronic kidney disease with heart failure and with stage 5 chronic kidney disease, or end stage renal disease; I50.32 Chronic diastolic (congestive) heart failure; E13.22 Other specified diabetes mellitus with diabetic chronic kidney disease; S00.81XA Abrasion of other part of head, initial encounter; S60.512A Abrasion of left hand, initial encounter; S60.511A Abrasion of right hand, initial encounter; I25.10 Atherosclerotic heart disease of native coronary artery without angina pectoris; I44.0 Atrioventricular block, first degree; D63.1 Anemia in chronic kidney disease; E78.5 Hyperlipidemia, unspecified; R41.3 Other amnesia; E13.319 Other specified diabetes mellitus with unspecified diabetic retinopathy without macular edema; E13.42 Other specified diabetes mellitus with diabetic polyneuropathy; E13.43 Other specified diabetes mellitus with diabetic autonomic (poly)neuropathy; K31.84 Gastroparesis; I95.89 Other hypotension; E66.9 Obesity, unspecified; Z68.32 Body mass index [BMI] 32.0-32.9, adult; H40.9 Unspecified glaucoma; W18.30XA Fall on same level, unspecified, initial encounter; Z91.81 History of falling; Z99.2 Dependence on renal dialysis; Z79.4 Long term (current) use of insulin; Z96.41 Presence of insulin pump (external) (internal); Z79.01 Long term (current) use of anticoagulants; Z79.82 Long term (current) use of aspirin; Z82.49 Family history of ischemic heart disease and other diseases of the circulatory system; Z86.718 Personal history of other venous thrombosis and embolism; Z86.73 Personal history of transient ischemic attack (TIA), and cerebral infarction without residual deficits; Z87.891 Personal history of nicotine dependence; Z98.42 Cataract extraction status, left eye; Z98.41 Cataract extraction status, right eye
CPT/HCPCS: 36415; 70450; 70486; 71045; 80048; 80053; 80069; 80074; 82948; 83735; 84100; 84484; 85025; 85610; 85730; 93005; 96374; 99285; A9270; G0257; G0378; J0690; J2765; J7030; Q5106

== ENCOUNTER 2020-05-26 16:08 | Observation (INO) | payer MEDICARE, OTHER, SELFPAY ==
[2020-05-26] VITALS (8 sets, daily range): BP systolic 92–169; BP diastolic 35–88; PULSE 53–72; RESP 12–18; TEMP 36.6–37.1; O2SAT 96–100; BMI 32.0
--- NOTE | ~2020-05-26 | CT_ITS ---
EXAMINATION: CT brain wo con INDICATION: Transient alteration of awareness COMPARISON: 05/23/2020 TECHNIQUE: Standard unenhanced head CT. The dose-length product (DLP) was 681.00 mGy-cm. The mA was a djusted according to patient size. Iterative reconstruction technique was employed. FINDINGS: There is no acute intraparenchymal hemorrhage. No evidence of mass lesion. No evidence of a cute infarction. There is mild periventricular and subcortical hypodensity probably related to small vessel ischemic disease. There is mild prominence of the sulci and ventricles related to cerebral atr ophy. Intracranial calcified cerebral atherosclerosis is noted. There are no extra-axial collections. There is no mass effect or midline shift. Changes in the globes are likely from ocular lens surgery. There is mild mucosal thickening of the paranasal sinuses. IMPRESSION: 1. No acute intracranial abnormality. 2. Age related findings. Reviewed, dictated and finalized at location A. [facility]
--- NOTE | 2020-05-26 16:33 | ED.SYNCOPE ---
HPI - Syncope General Chief Complaint: Fall Stated Complaint: syncope, fall Time Seen by Provider: 05/26/20 16:11 Source: patient Mode of arrival: EMS Limitations: no limitations History of Present Illness HPI narrative: Patient is a 65-year-old male complaining of a syncopal episode at home. states that he was walking to the kitchen and passed out, lasted for approximately 1 to 2 minutes. Patient was a symptomatic prior to the syncope and fall. Patient was recently discharged yesterday for the same complaints, was admitted this past week due to multiple syncopal episodes over the past 2 weeks. Patient states that he saw Dr. Redding, he was taken off his blood pressure medication and warfarin, supposed to follow-up with him tomorrow for Holter monitor. Patient currently has no complaints at this time. Denies any head pain, dizziness, speech or visual disturbance, weakness, numbness, chest pain, shortness of breath, abdominal pain, nausea, vomiting, diarrhea, fever or chills. Related Data Home Medications Medication Instructions Recorded Confirmed aspirin 81 mg tablet,delayed 81 mg PO DAILY 04/24/19 05/24/20 release escitalopram oxalate 20 mg tablet 20 mg PO DAILY tablet 04/24/19 05/24/20 gabapentin 300 mg capsule 600 mg PO TID cap 04/24/19 05/24/20 insulin lispro 100 unit/mL 1 sliding scale dose SUB-Q 04/24/19 05/24/20 subcutaneous solution USEASDIRECTD [place] 8.4 g PO DAILY 05/24/20 05/24/20 allopurinol 100 mg PO DAILY 05/24/20 05/24/20 ergocalciferol (vitamin D2) 50,000 mcg PO WEEKLY 05/24/20 05/24/20 [Vitamin D2] lanthanum 1,000 mg PO QID 05/24/20 05/24/20 midodrine 5 mg PO TID 05/24/20 05/24/20 mirtazapine 15 mg PO HS 05/24/20 05/24/20 Allergies Allergy/AdvReac Type Severity Reaction Status Date / Time Sulfa (Sulfonamide Allergy Mild Hives Verified 05/26/20 16:23 Antibiotics) ibuprofen AdvReac Severe BAD RENAL Verified 05/26/20 16:23 FUNCTION Review of Systems Review of Systems: All systems reviewed & are unremarkable except as noted in HPI and below Constitutional: Constitutional: Denies body ache(s), Denies chills, Denies excessive sweating, Denies fatigue, Denies fever(s), Denies headache(s), Denies lethargy, Denies malaise, Denies weakness and Denies weight loss Eyes: Eyes: Denies blurry vision, Denies change in vision and Denies loss of vision ENT: Denies dizziness, Denies ear discharge, Denies headache(s), Denies lip swelling, Denies epistaxis, Denies nasal congestion, Denies neck pain, Denies throat swelling and Denies tongue swelling Cardiovascular: Cardiovascular: Denies chest pain, Denies chest pain at rest, Denies chest pain with activity, Denies diaphoresis, Denies rapid heart rate, Denies edema, Denies irregular heart rhythm, Denies lightheadedness, Denies palpitations, Denies dyspnea and Denies dyspnea on exertion Respiratory: Respiratory: Denies chest congestion, Denies cough, Denies hemoptysis, Denies dyspnea and Denies dyspnea on exertion Gastrointestinal: Gastrointestinal: Denies abdominal pain, Denies melena, Denies hematochezia, Denies diarrhea, Denies nausea, Denies vomiting and Denies hematemesis Musculoskeletal: Musculoskeletal: Denies abnormal gait, Denies deformity, Denies joint swelling, Denies limited range of motion, Denies neck pain and Denies numbness Neurologic: Denies Abnormal speech present, Denies abnormal gait, Denies confusion, Denies dizziness, Denies headache(s), Denies focal weakness, Denies loss of vision, Denies numbness, Denies Other visual disturbances, Denies Sensory deficit (Neuro) and Denies weakness Psychiatric: Psychiatric: Denies confusion, Denies depression, Denies auditory hallucinations, Denies homicidal ideation and Denies suicidal ideation Endocrine: Endocrine: Denies cold intolerance, Denies excessive sweating, Denies fatigue, Denies heat intolerance and Denies palpitations Hematologic/Lymphatic: Hematologic/Lymphatic: Denies easy bleeding
--- NOTE | 2020-05-26 16:38 | ECG_ITS ---
Measurements Intervals [place] Rate: 66 P: 154 NM: 93 QRS: 122 QRSD: 132 T: 47 QT: 471 QTc: 495 Interpretive Statements SINUS RHYTHM WITH FIRST DEGREE AV BLOCK RIGHT AXIS DEVIATION RIGHT BUNDLE BRANCH BLOCK CONSIDER INFERIOR INFARCT, AGE INDETERMINATE ABNORMAL ECG Electronically Signed On 05-26-2020 18:17:08 [employer] RUNNER by Destin Barragan D.O.
[2020-05-26 17:35] LABS: Basophils Absolute Auto 0.1 K/mm3 (0.0-0.1); Basophils Percent Auto 0.9 % (0.2-1.2); Eosinophils Absolute Auto 0.3 K/mm3 (0-0.3); Eosinophils Percent Auto 3.8 % (0-4.4); Hematocrit 27.9 % (42.0-52.0); Hemoglobin 8.9 g/dL (14.0-18.0); Immature Granulocyte Absolute 0.01 K/mm3 (0.00-0.031); Immature Granulocyte Percent A 0.2 % (0-0.5); Lymphocytes Absolute Auto 1.08 K/mm3 (0.9-3.2); Lymphocytes Percent Auto 16.3 % (18.3-44.2); Mean Corpuscular HGB Conc 31.9 g/dl (32-36); Mean Corpuscular Hemoglobin 34.6 pg (26-34); Mean Corpuscular Volume 108.6 fl (80-100); Monocytes Absolute Auto 0.9 K/mm3 (0.1-0.6); Monocytes Percent Auto 13.4 % (2.6-8.5); Neutrophils Absolute Auto 4.3 K/mm3 (1.3-6.7); Neutrophils Percent Auto 65.4 % (45.5-73.1); Platelet Count Result 169 k/mm3 (150-375); Red Blood Count 2.57 M/mm3 (4.6-6.20); Red Cell Distribution Width 13.6 % (11.5-14.5); White Blood Count 6.6 K/mm3 (4.5-10.0)
[2020-05-26 17:47] LABS: Alanine Aminotransferase 9 U/L (4-50); Alkaline Phosphatase 72 U/L (38-126); Anion Gap 9 mmol/L (8-16); Aspartate Amino Transferase 28 U/L (17-59); Bilirubin,Total 0.4 mg/dL (0.2-1.3); Blood Urea Nitrogen 51 mg/dL (9-20); Calcium 8.4 mg/dL (8.4-10.2); Carbon Dioxide 33 mmol/L (22-30); Chloride 94 mmol/L (98-107); Estimated Glomerular Filt Rate 7; Glucose 240 mg/dL (75-110); Potassium 3.6 mmol/L (3.4-5.0); Sodium 136 mmol/L (137-145)
[2020-05-26 18:32] LABS: Troponin I 0.258 ng/mL (0.000-0.034)
[2020-05-26 21:40] LABS: Troponin I 0.309 ng/mL (0.000-0.034)
[2020-05-26] MEDS: MIDODRINE HCL 2.5 MG TABLET 5 MG PO (21:49)
--- NOTE | 2020-05-26 21:55 | ADMGEN ---
This patient, Haja Diego, was admitted to IMU Room 202-01. Patient/family oriented to hospital policies and general routines including ID bracelet, bed and alarms, visiting hours, pain management, procedures, bathroom and other care routines, personal items, smoking policy, room service/diet, and visiting hours. Information on how to activate the Rapid Response Team has been discussed. Patient/Family are encouraged to report perceived risks to care and to ask questions if they do not understand what they are told or what they should do. Telma RN arrived approx [phone]
[2020-05-26 22:18] LABS: Glucose Point of Care 155 (65-105)
--- NOTE | 2020-05-26 23:13 | PM.IMHP ---
H&P: HPI History of Present Illness Date/Time: 05/26/20 23:13 Chief Complaint: Passed out again Narrative: Haja Diego is a 65 year old male with a past medical history of CHF, coronary artery disease, first-degree AV block, and multiple falls and a family history of short QT who presented to the ER for 2nd time within the last 4 days for recurrence syncope. The patient's syncope is suspected to be cardiogenic in nature. The patient had previously had a 30 day event monitor that did not demonstrate any events but over the last 3 weeks his episodes of syncope a become much more frequent. He has now had 4 5 episodes of syncope within the last 2 weeks. On May 24 the resulted in a open nasal fracture. The patient was monitored until the and was discharged home with a plan for 30 day event monitor to be placed on 05/27/2020. However, the patient was standing in his kitchen today and had a syncopal episode. He fell and hit his face again. He had a loss of consciousness lasting approximately 1-2 minute. The patient reports that his glucose was low prior to his syncopal event but he had time to drink despite before had a syncopal event. His glucose when he arrived to the ER was 240. When he came to he was back to his normal mental status/alert oriented x3. He denies any chest pain or palpitations prior to his syncopal event. During his last hospitalization is Cardizem was discontinued. His COVID was also discontinued as he had no cardiac indication for lifelong anticoagulation. The patient is concerned because he has a family history of prolonged QT. He has multiple family members including siblings and nieces and nephews who have pacemakers and defibrillators in place. Patient does not want to be discharged home to wear an event monitor. He wants to ambulate around the hospital until an event occurs. Or he wants tested for short QT. Review of Systems Review of Systems: Narrative: 12 systems were reviewed with pertinent positives and negatives per HPI. Except as documented in the HPI, all other systems were reviewed and are negative. 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 The patient is on the renal transplant list at [place]. Wednesday managed by Dr. Aguiar Fracture, nose, open Glaucoma Hyperlipidemia Memory loss or impairment Myocardial infarction 2003 and 2010 Surgical History Surgical History H/O inguinal hernia repair At age 6 History of bilateral cataract extraction History of heart artery stent X8 prior to CABG History of nasal surgery 1988 History of pericardiectomy Hx of CABG 3 vessel CABG 2010 at [facility] Status post open reduction with internal fixation of fracture Left hand fracture in 1981 Family History Family History Sibling Family history of cardiac disorder Congestive heart failure Sudden cardiac Another sister Acute myocardial infarction Sister Leonie [id number] short QT syndrome 1 sister, nieces and nephews the specific gene mutation is uncertain Mother Diabetes mellitus Aneurysm Father Cerebrovascular accident
[2020-05-27] VITALS (31 sets, daily range): BP systolic 95–128; BP diastolic 42–69; PULSE 56–69; RESP 16–18; TEMP 35.5–36.9; O2SAT 95–99
[2020-05-27] MEDS: MIRTAZAPINE 15 MG TABLET PO ×2 (00:05→20:43)
[2020-05-27] MEDS: CEPHALEXIN 500 MG CAPSULE PO ×4 (00:05→20:42)
[2020-05-27] MEDS: GABAPENTIN 300 MG CAPSULE 600 MG PO ×4 (00:05→19:40)
[2020-05-27] MEDS: MELATONIN 3 MG TABLET PO ×2 (00:05→20:43)
[2020-05-27 00:20] LABS: Troponin I 0.376 ng/mL (0.000-0.034)
[2020-05-27 05:35] LABS: Glucose Point of Care 100 (65-105)
[2020-05-27] MEDS: allopurinoL 100 MG TABLET PO (08:34)
[2020-05-27] MEDS: MIDODRINE HCL 2.5 MG TABLET 5 MG PO (08:35)
[2020-05-27] MEDS: PANTOPRAZOLE 40 MG TABLET PO (08:35)
[2020-05-27] MEDS: SIMVASTATIN 20 MG TABLET 40 MG PO (08:35)
[2020-05-27] MEDS: ASPIRIN 81 MG ENTERIC TABLET PO (08:36)
[2020-05-27] MEDS: ESCITALOPRAM OXALATE 10 MG TABLET 20 MG PO (08:36)
[2020-05-27 08:41] LABS: Glucose Point of Care 127 (65-105)
[2020-05-27 08:42] LABS: Hematocrit 26.3 % (42.0-52.0); Hemoglobin 8.3 g/dL (14.0-18.0); Mean Corpuscular HGB Conc 31.6 g/dl (32-36); Mean Corpuscular Hemoglobin 34.4 pg (26-34); Mean Corpuscular Volume 109.1 fl (80-100); Mean Platelet Volume 11.2 fl (7.4-10.4); Platelet Count Result 155 k/mm3 (150-375); Red Blood Count 2.41 M/mm3 (4.6-6.20); Red Cell Distribution Width 13.5 % (11.5-14.5); White Blood Count 6.3 K/mm3 (4.5-10.0)
[2020-05-27 08:56] LABS: Alanine Aminotransferase 6 U/L (4-50); Albumin Level 3.7 g/dL (3.5-5.1); Alkaline Phosphatase 60 U/L (38-126); Anion Gap 9 mmol/L (8-16); Aspartate Amino Transferase 22 U/L (17-59); Bilirubin,Total 0.4 mg/dL (0.2-1.3); Blood Urea Nitrogen 63 mg/dL (9-20); Carbon Dioxide 31 mmol/L (22-30); Chloride 97 mmol/L (98-107); Estimated CRCL calculation 9 ml/min; Estimated Glomerular Filt Rate 6; Glucose 108 mg/dL (75-110); Potassium 3.5 mmol/L (3.4-5.0); Sodium 137 mmol/L (137-145)
--- NOTE | 2020-05-27 13:07 | PM.PNCARD ---
Progress Note: A&P Additional Plan 65-year-old man with: Recurrent syncopal episodes an EKG showing evidence of conduction system disease strong suspicion is that he is having significant pauses and would benefit from a pacemaker but it is very frustrating that we have not been able to establish this diagnosis. Contacted to the electrophysiology recruiting operations consultant at [place], Dr. Rowe who has agreed to accept Mr. Diego in transfer to their hospital for more sophisticated electrophysiology evaluation in terms of evaluating his HV intervals and determining if a pacemaker implantation cannot be performed based on that data. Because of recurrent syncope and injury we should not discharge this patient until these studies occur and the a decision is made as to whether he would benefit from a device implant. In the meantime while at [place] he should of course remain on telemetry and the event that he declares his pathology we can consider implanting a device at this hospital. Jorge Luis Redding MD [facility] Subjective Date/time seen: Date of service: 05/27/20 13:07 Interval history: 65-year-old man with: Frustrating history of recurrent syncopal episodes that remain unexplained. As in previous notes I am suspicious that he is having bradycardic pauses because he has first-degree AV block as well as bifascicular block. Underlying multivessel coronary disease with previous surgical revascularization as well. The patient was just discharged last Wednesday and then the following day experience syncope again and was brought back to the hospital. He has now been in the hospital several times with these events and telemetry still does not show any pauses that would justify pacemaker implantation. Patient was seen at today and at this with the whole situation was discussed again in detail with he and his . I am going to recommend attempting to transfer him to [place] where he can be seen in consultation by electrophysiology and hopefully determine if more evaluation of his conduction system disease would be of benefit. Patient is agreeable to this. He is known to the physicians at [place] as they just completed a cardiac evaluation prior to him being a candidate for renal transplantation. Exam Const: General: comfortable and no acute distress HENMT: Mouth: Yes moist mucous membranes Other: Patient has ecchymosis about the nose and forehead healing from when I saw him with Wednesday. Eyes: Sclera: sclerae normal Pupils: Equal, round and reactive pupils present Neck: Neck: supple and no JVD Thyroid: thyroid normal Resp: Effort & Inspection: normal respiratory effort Auscultation: clear to auscultation bilaterally Cardio: Rate: regular rate Rhythm: regular rhythm GI: GI Palp: Yes Soft to palpation Auscultation: normal bowel sounds Skin: General skin exam: normal color Neuro: Cognition (Neuro): normal cognition Extrem: General: normal to inspection Objective Data Vital Signs Vital Signs: Vital Signs - 24 hr 05/26/20 16:14 05/26/20 17:30 05/26/20 18:30 Temperature 37.1 C Pulse Rate 67 66 72 Respiratory Rate 12 16 16 Blood Pressure 113/67 169/88 H 104/68 Pulse Oximetry 96 97 98 05/26/20 19:30 05/26/20 20:20 05/26/20 21:40 Temperature 36.9 C Pulse Rate 65 65 66 Respiratory Rate 16 16 18 Blood Pressure 102/66 99/58 L 112/60 Pulse Oximetry 97 97 100 05/26/20 22:00 05/26/20 23:47 05/27/20 00:00 Temperature 36.6 C Pulse Rate 63 53 L 58 L Respiratory Rate 18 Blood Pressure 92/35 L Pulse Oximetry 98 05/27/20 02:00 05/27/20 04:00 05/27/20 06:00 Temperature 36.6 C Pulse Rate 56 L 58 L 56 L Respiratory Rate 18 Blood Pressure 97/42 L Pulse Oximetry 98 05/27/20 08:00 05/27/20 08:16 05/27/20 10:00 Temperature 36.0 C L Pulse Rate 64 57 L Respiratory Rate 18 Blood Pressure 95/57 L 100/56 L Pulse Oximetry 95 05/27/20 10:09 05/27/20 12:00 Temperature 36.6 C Pulse Rate 63 Respira
[2020-05-27] MEDS: MIDODRINE HCL 10 MG TABLET PO ×2 (13:37→19:40)
[2020-05-27 13:57] LABS: Glucose Point of Care 127 (65-105)
--- NOTE | 2020-05-27 15:13 | PM.TDS ---
Transfer Discharge Sum: Prov Provider Date of admission: 05/26/20 19:06 Primary care physician: Cristhian Muhammad DO Admitting clinician: Erma Schmitz DO Consults: 05/26/20 19:08 Consult to Physician Routine Comment: Consulting Provider: Jorge Luis Redding Reason for consultation: SYNCOPE Has provider been notified: Yes 05/27/20 Consult to Physician Routine Comment: EXCHANGE NOTIFIED OF CONSULT Consulting Provider: Qiana Aguiar will call order clerk/MD group to consult: Dr. Aguiar Reason for consultation: Dialysis Wednesday, electrolytes stable Has provider been notified: Yes DS: Admitting Diagnosis Admitting Diagnosis Admitting Diagnosis: Syncope DS: Discharge Diagnosis Discharge Diagnosis (1) Syncope and collapse: Code(s): R55 - Syncope and collapse Status: Acute Assessment and Plan: Recurrent syncope likely due to cardiac arrhythmia. Will continue to monitor on telemetry. Cardiology has been consulted. The patient does not want await for a 30 day event monitor. He plans on discussing this with Cardiology in the a.m.. (2) Elevated troponin: Code(s): R77.8 - Other specified abnormalities of plasma proteins Status: Acute Assessment and Plan: With flat troponin profile not indicative of acute ischemia. Elevated troponin likely secondary to the patient's end-stage renal disease and underlying chronic heart disease. (3) ESRD (end stage renal disease) on dialysis: Code(s): N18.6 - End stage renal disease; Z99.2 - Dependence on renal dialysis Status: Acute Assessment and Plan: Dr. Aguiar has been consulted for dialysis management. Patient would like to have dialysis tomorrow so that he can get back on his usual Wednesday schedule. He last received dialysis 05/25/2020. Transfer Discharge Sum: Med Medications Active and Home Medications: Home Medications aspirin 81 mg tablet,delayed release 81 mg PO DAILY 04/24/19 [History Confirmed 05/26/20] escitalopram oxalate 20 mg tablet 20 mg PO DAILY tablet 04/24/19 [History Confirmed 05/26/20] gabapentin 300 mg capsule 600 mg PO TID cap 04/24/19 [History Confirmed 05/26/20] insulin lispro 100 unit/mL subcutaneous solution 1 sliding scale dose SUB-Q USEASDIRECTD 04/24/19 [History Confirmed 05/26/20] simvastatin 40 mg tablet 40 mg PO DAILY #90 tablet 05/01/20 [Rx Confirmed 05/26/20] pantoprazole 40 mg tablet,delayed release 40 mg PO QAM #90 tablet 05/07/20 [Rx Confirmed 05/26/20] Veltassa 8.4 g PO DAILY 05/24/20 [History Confirmed 05/26/20] allopurinol 100 mg PO DAILY 05/24/20 [History Confirmed 05/26/20] ergocalciferol (vitamin D2) [Vitamin D2] 50,000 mcg PO WEEKLY 05/24/20 [History Confirmed 05/26/20] lanthanum 1,000 mg PO QID 05/24/20 [History Confirmed 05/26/20] midodrine 5 mg PO TID 05/24/20 [History Confirmed 05/26/20] mirtazapine 15 mg PO HS 05/24/20 [History Confirmed 05/26/20] cephalexin 500 mg PO Q8H #21 cap 05/25/20 [Rx Confirmed 05/26/20] melatonin 3 mg PO HS #30 tablet 05/25/20 [Rx Confirmed 05/26/20] Active Medications Allopurinol (Allopurinol 100 Mg Tablet) 100 mg PO DAILY@0800 [facility] Last Admin: 05/27/20 08:34 Dose: 100 mg Documented by: Aspirin (Aspirin 81 Mg Enteric Tablet) 81 mg PO DAILY [facility] Last Admin: 05/27/20 08:36 Dose: 81 mg Documented by: Cephalexin HCl (Cephalexin 500 Mg Capsule) 500 mg PO Q8HR [facility] Stop: 06/02/20 06:01 Last Admin: 05/27/20 13:35 Dose: 500 mg Documented by: Dextrose (Dextrose 50% 25 Gm/50 Ml Syringe) 12.5 gm IV PUSH PRN PRN; Protocol PRN Reason: Hypoglycemia Escitalopram Oxalate (Escitalopram Oxalate 10 Mg Tablet) 20 mg PO DAILY [facility] Last Admin: 05/27/20 08:36 Dose: 20 mg Documented by: Gabapentin (Gabapentin 300 Mg Capsule) 600 mg PO TID [facility] Last Admin: 05/27/20 13:35 Dose: 600 mg Documented by: Glucagon (Glucagon For Inj 1 Mg Vial) 1 mg IM PRN PRN; Protocol PRN Reason: Hypoglycemia Glucose (Gl
[2020-05-27] MEDS: EPOETIN ALFA-EPBX 10,000 UNITS/ML VIAL 10000 UNITS SUB-Q (17:43)
--- NOTE | 2020-05-27 18:24 | PM.CNNEP ---
Assessment and Plan Assessment and plan (1) Syncope and collapse: Code(s): R55 - Syncope and collapse Status: Acute (2) Contusion of face: Qualifiers: Encounter type: initial encounter Qualified Code(s): S00.83XA - Contusion of other part of head, initial encounter Code(s): S00.83XA - Contusion of other part of head, initial encounter Status: Acute (3) Syncope: Code(s): R55 - Syncope and collapse Status: Acute (4) Coronary atherosclerosis: Code(s): I25.10 - Atherosclerotic heart disease of [place] coronary artery without angina pectoris Status: Acute (5) Fracture, nose, open: Code(s): S02.2XXB - Fracture of nasal bones, initial encounter for open fracture Status: Acute (6) Chronic anticoagulation: Code(s): Z79.01 - buttermilk drier operator (current) use of anticoagulants Status: Acute (7) ESRD (end stage renal disease) on dialysis: Code(s): N18.6 - End stage renal disease; Z99.2 - Dependence on renal dialysis Status: Acute (8) Diabetic polyneuropathy associated with type 1 diabetes mellitus: Code(s): E10.42 - Type 1 diabetes mellitus with diabetic polyneuropathy Status: Acute Additional Plan 1. hd today heparin free 2. EPOGEN 3 also increased the Midodrine dose b/c of the low bp with orthostatics this am although he was not orthostatic. 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 The patient is on the renal transplant list at [place]. Wednesday managed by Dr. Aguiar Fracture, nose, open Glaucoma Hyperlipidemia Memory loss or impairment Myocardial infarction 2003 and 2010 Surgical History Surgical History H/O inguinal hernia repair At age 6 History of bilateral cataract extraction History of heart artery stent X8 prior to CABG History of nasal surgery 1988 History of pericardiectomy Hx of CABG 3 vessel CABG [address] [facility] Status post open reduction with internal fixation of fracture Left hand fracture in 1982 Family History Family History Sibling Family history of cardiac disorder Congestive heart failure Sudden cardiac Another sister Acute myocardial infarction Sister Leonie [id number] short QT syndrome 1 sister, nieces and nephews the specific gene mutation is uncertain Mother Diabetes mellitus Aneurysm Father Cerebrovascular accident Sibling Asthma Sister Arin Social History Social History Social History: He has been for 37 years. He has 2 children who are healthy. He used to rarely drinks alcohol and only in moderation. He is retired from the [employer] department of a [employer]. Primary care physician: Dr. Cristhian Muhammad Code status: Full code Surrogate decision maker: Heydi () Smoking packs per day: 2 Smoking cigarettes per day: 40.0 Years smoked: 4 Smoking pack-years: 8.00 Smoking status: Former
--- NOTE | 2020-05-27 18:30 | PM.CNNEP ---
Assessment and Plan Assessment and plan (1) Syncope and collapse: Code(s): R55 - Syncope and collapse Status: Acute (2) Coronary atherosclerosis: Code(s): I25.10 - Atherosclerotic heart disease of [place] coronary artery without angina pectoris Status: Acute (3) Syncope: Code(s): R55 - Syncope and collapse Status: Acute (4) Fracture, nose, open: Code(s): S02.2XXB - Fracture of nasal bones, initial encounter for open fracture Status: Acute (5) Secondary hypophosphatemia: Code(s): E83.39 - Other disorders of phosphorus metabolism Status: Acute (6) Chronic anticoagulation: Code(s): Z79.01 - nursing home (current) use of anticoagulants Status: Acute (7) Contusion of face: Qualifiers: Encounter type: initial encounter Qualified Code(s): S00.83XA - Contusion of other part of head, initial encounter Code(s): S00.83XA - Contusion of other part of head, initial encounter Status: Acute (8) ESRD (end stage renal disease) on dialysis: Code(s): N18.6 - End stage renal disease; Z99.2 - Dependence on renal dialysis Status: Acute (9) Fracture of nasal bones, initial encounter for open fracture: Code(s): S02.2XXB - Fracture of nasal bones, initial encounter for open fracture Status: Acute (10) Atherosclerotic heart disease of [place] coronary artery without angina pectoris: Code(s): I25.10 - Atherosclerotic heart disease of [place] coronary artery without angina pectoris Status: Acute (11) Anemia: Qualifiers: Anemia type: unspecified type Qualified Code(s): D64.9 - Anemia, unspecified Code(s): D64.9 - Anemia, unspecified Status: Acute Assessment and Plan: agree with plan to transfr. pt is being dialyzed before transfer as today is his usual day. also give epogen dose/ no hepairn with dialysis. 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 The patient is on the renal transplant list at [place]. Wednesday managed by Dr. Aguiar Fracture, nose, open Glaucoma Hyperlipidemia Memory loss or impairment Myocardial infarction 2003 and 2010 Surgical History Surgical History H/O inguinal hernia repair At age 6 History of bilateral cataract extraction History of heart artery stent X8 prior to CABG History of nasal surgery 1988 History of pericardiectomy Hx of CABG 3 vessel CABG [address] [facility] Status post open reduction with internal fixation of fracture Left hand fracture in 1982 Family History Family History Sibling Family history of cardiac disorder Congestive heart failure Sudden cardiac Another sister Acute myocardial infarction Sister Leonie [id number] short QT syndrome 1 sister, nieces and nephews the specific gene mutation is uncertain Mother Diabetes mellitus Aneurysm Father Cerebrovascular accident Sibling Asthma Sister Arin Social History Social History (Reviewed 05/27/20 @ 1
[2020-05-27 19:10] LABS: Glucose Point of Care 81 (65-105)
[2020-05-27 20:13] LABS: Glucose Point of Care 104 (65-105)
[2020-05-28] VITALS: BP 106/50; PULSE 59; RESP 18; TEMP 36.4; O2SAT 100
[2020-05-28 02:00] VITALS: PULSE 58
[2020-05-28 03:56] VITALS: BP 97/49; PULSE 57; RESP 16; TEMP 36.6; O2SAT 98
[2020-05-28 04:00] VITALS: PULSE 57
[2020-05-28 06:00] VITALS: PULSE 61
[2020-05-28] MEDS: CEPHALEXIN 500 MG CAPSULE PO (06:09)
--- NOTE | 2020-05-28 07:03 | PC.NURSE ---
report given to Karlee Gardner pt left via ems at approx [phone]
== END 2020-05-28 06:59 | disposition short-term general hospital (02) ==
LOC: ANHED 19:16 → ANHIMU 23:45
PROVIDERS: Internal Medicine Nephrology; Admitting Provider Internal Medicine; Emergency Provider Emergency Medicine; PCP Internal Medicine; Visit Provider Family Medicine
DX: R55 Syncope and collapse (principal); R77.8 Other specified abnormalities of plasma proteins; I25.10 Atherosclerotic heart disease of native coronary artery without angina pectoris; E83.39 Other disorders of phosphorus metabolism; S00.83XA Contusion of other part of head, initial encounter; S02.2XXB Fracture of nasal bones, initial encounter for open fracture; W18.39XA Other fall on same level, initial encounter; I13.2 Hypertensive heart and chronic kidney disease with heart failure and with stage 5 chronic kidney disease, or end stage renal disease; E13.22 Other specified diabetes mellitus with diabetic chronic kidney disease; N18.6 End stage renal disease; I50.9 Heart failure, unspecified; Z99.2 Dependence on renal dialysis; R29.6 Repeated falls; E13.21 Other specified diabetes mellitus with diabetic nephropathy; E13.42 Other specified diabetes mellitus with diabetic polyneuropathy; E13.319 Other specified diabetes mellitus with unspecified diabetic retinopathy without macular edema; E13.43 Other specified diabetes mellitus with diabetic autonomic (poly)neuropathy; K31.84 Gastroparesis; E78.5 Hyperlipidemia, unspecified; D63.1 Anemia in chronic kidney disease; F41.8 Other specified anxiety disorders; H40.9 Unspecified glaucoma; I45.2 Bifascicular block; I25.2 Old myocardial infarction; I44.0 Atrioventricular block, first degree; Z86.73 Personal history of transient ischemic attack (TIA), and cerebral infarction without residual deficits; Z87.11 Personal history of peptic ulcer disease; Z79.82 Long term (current) use of aspirin; Z79.4 Long term (current) use of insulin; Z86.718 Personal history of other venous thrombosis and embolism; Z95.1 Presence of aortocoronary bypass graft; Z95.5 Presence of coronary angioplasty implant and graft; Z87.891 Personal history of nicotine dependence
CPT/HCPCS: 36415; 70450; 80053; 82948; 84484; 85025; 85027; 93005; 96372; 99285; A9270; G0257; G0378; Q5106

== ENCOUNTER 2020-06-11 10:34 | Observation (INO) | payer MEDICARE, OTHER, SELFPAY ==
[2020-06-11] VITALS (15 sets, daily range): BP systolic 90–122; BP diastolic 46–84; PULSE 58–65; RESP 11–20; TEMP 36.3–36.8; O2SAT 97–100; BMI 32.1
--- NOTE | ~2020-06-11 | CT_ITS ---
EXAMINATION: CT brain wo con DATE: 06/11/2020 11:29 INDICATION: Slurred speech TECHNIQUE: Computed tomography (CT) of the head was performed without intravenous contrast. The mA wa s adjusted according to patient size. Iterative reconstruction technique was employed. Exam dose: 60 5.33 mGy-cm total exam DLP. COMPARISON: 05/26/2020 CT brain FINDINGS: Prominent vertebral artery and bilateral carotid siphon internal carotid artery calcificati ons are noted. No intracranial mass lesion or hemorrhage or cerebrovascular accident is evident. There is moderate central and cortical cerebral and mild cerebellar volume loss. No subdural or epidural hematoma. No orbital mass lesion. No fracture or bone destruction of the cranial vault. Included paranasal sinuses and the mastoid air cells are normally developed and aerated. IMPRESSION: Cerebral atherosclerosis Moderately prominent cerebral and mild cerebellar volume loss No acute intracranial finding or significant change since 05/26/2020 Reviewed, dictated and finalized at [facility]. Reviewed, dictated and finalized at [facility].
--- NOTE | ~2020-06-11 | US_ITS ---
EXAMINATION: US carotid duplex BI DATE: 06/11/2020 14:28 INDICATION: TIA. TECHNIQUE: Grayscale, color Doppler, and pulsed Doppler images of the cervical carotid arteries were obtained. The degree of vessel stenosis is placed in one of the following categories: normal, <50%, 5 0-69%, >=70% but less than near-occlusion, near-occlusion, or total occlusion. Note that percent sten osis relative to normal distal artery lumen diameter is indirectly measured from velocity measurement s as described by Cam, et al. Radiology 2003; [id number]. Notes: Normal: Peak systolic velocity <125 centimeters/sec and no plaque <50%. Peak systolic velocity <125 ( EDV <40; ICA/CCA PSV ratio <2.0; used these factors only a tandem lesions or low cardiac output or co ntralateral disease) 50-69 %: PSV 125-230 (EDV 40-100; ratio 2-4) >= 70% but less than near occlusion: PSV greater than 230 (EDV > 100; ratio> 4.0) Near Occlusion: PSV that is variable; markedly narrowed lumen Occlusion: Absent flow on color/spectral Doppler and no lumen on mckeon scale. COMPARISON: Ultrasound dated 06/29/2015. FINDINGS: RIGHT: The right common carotid artery (CCA) peak systolic velocity (PSV) is 97 cm/s. The right internal car otid artery (ICA) PSV is 81 cm/s. The right ICA end-diastolic velocity (EDV) is 22 cm/s. The right IC A/CCA PSV ratio is 0.8. The external carotid artery (ECA) PSV is 101 cm/s. There is antegrade flow in the right vertebral artery. LEFT: The left CCA PSV is 104 cm/s. The left ICA PSV is 54 cm/s. The left ICA EDV is 20 cm/s. The left ICA/ CCA PSV ratio is 0.5. The ECA PSV is 63 cm/s. There is antegrade flow in the left vertebral artery. IMPRESSION: 1. Less than 50% stenosis in the right internal carotid artery by sonographic criteria. 2. Less than 50% stenosis in the left internal carotid artery by sonographic criteria. Reviewed, dictated and finalized at [facility]. IMPRESSION: 1. Less than 50% stenosis in the right internal carotid artery by sonographic c elanaeria. 2. Less than 50% stenosis in the left internal carotid artery by sonographic cr margie.
--- NOTE | ~2020-06-11 | XR_ITS ---
XR chest 2V 06/11/2020 11:33 Indication: Slurred speech Procedure: PA and lateral views of the chest Comparison: Comparison to multiple prior studies sequentially, with oldest reviewed study dated 07/16. Findings: Status post median sternotomy for CABG. Pacemaker leads are present in expected position. T here is a coronary artery stent. There is left lower lobe infiltrates. There is residual contrast in the colon. Right lung clear. No significant effusion or pneumothorax. No acute osseous abnormality. Impression: 1: Left lower lobe airspace disease, which may represent atelectasis/scarring or pneumonia. Reviewed, dictated and finalized at location [facility]. Impression: 1: Left lower lobe airspace disease, which may represent atelectasis/scarring o r pneumonia.
--- NOTE | 2020-06-11 11:12 | ECG_ITS ---
Measurements Intervals [place] Rate: 63 P: -54 IN: 229 QRS: 107 QRSD: 142 T: 1 QT: 465 QTc: 478 Interpretive Statements SINUS RHYTHM WITH FIRST DEGREE AV BLOCK RIGHT AXIS DEVIATION RIGHT BUNDLE BRANCH BLOCK CONSIDER INFERIOR INFARCT, AGE INDETERMINATE BASELINE ARTIFACT- I, III, AVR, AVL, AVF, V6 ABNORMAL ECG Electronically Signed On 06-11-2020 13:57:23 CDT by Destin Barragan D.O.
--- NOTE | 2020-06-11 11:24 | PC.NURSE ---
PT TO CT AT THIS TIME.
[2020-06-11 11:28] LABS: Basophils Absolute Auto 0.1 K/mm3 (0.0-0.1); Basophils Percent Auto 1.2 % (0.2-1.2); Eosinophils Absolute Auto 0.3 K/mm3 (0-0.3); Eosinophils Percent Auto 4.8 % (0-4.4); Hematocrit 28.4 % (42.0-52.0); Hemoglobin 8.8 g/dL (14.0-18.0); Immature Granulocyte Absolute 0.02 K/mm3 (0.00-0.031); Immature Granulocyte Percent A 0.3 % (0-0.5); Lymphocytes Absolute Auto 1.15 K/mm3 (0.9-3.2); Lymphocytes Percent Auto 19.1 % (18.3-44.2); Mean Corpuscular Hemoglobin 34.2 pg (26-34); Mean Corpuscular Volume 110.5 fl (80-100); Mean Platelet Volume 10.6 fl (7.4-10.4); Monocytes Absolute Auto 0.6 K/mm3 (0.1-0.6); Monocytes Percent Auto 9.3 % (2.6-8.5); Neutrophils Absolute Auto 3.9 K/mm3 (1.3-6.7); Neutrophils Percent Auto 65.3 % (45.5-73.1); Platelet Count Result 194 k/mm3 (150-375); Red Blood Count 2.57 M/mm3 (4.6-6.20); Red Cell Distribution Width 14.2 % (11.5-14.5)
[2020-06-11 11:38] LABS: Partial Thromboplastin Time 28.7 SECONDS (22.3-36.8); Prothrombin Time 13.7 Seconds (11.1-14.7)
[2020-06-11 11:40] LABS: Anion Gap 11 mmol/L (8-16); Blood Urea Nitrogen 47 mg/dL (9-20); Calcium 8.8 mg/dL (8.4-10.2); Carbon Dioxide 28 mmol/L (22-30); Chloride 101 mmol/L (98-107); Estimated CRCL calculation 11 ml/min; Estimated Glomerular Filt Rate 7; Glucose 215 mg/dL (75-110); Sodium 140 mmol/L (137-145)
[2020-06-11 11:55] LABS: Troponin I 0.078 ng/mL (0.000-0.034)
--- NOTE | 2020-06-11 12:36 | ED.GENADULT ---
HPI - General Adult General Chief complaint: Neuro Symptoms/Deficit Stated complaint: slurred speech last night Time Seen by Provider: 06/11/20 12:02 Source: patient History of Present Illness HPI narrative: Patient is a 65 y/o male complaining of slurred speech last night. He does not recall what happened. His states that around 9:30 PM, he was holding a can of soda but was not acting right. His speech was slurred and his right hand was shaking. His left hand was helping holding the can. There was no alleviating or exacerbating factor with his symptoms. This lasted approximately 2 minutes and then resolved spontaneously. He has no complaints at this time. Related Data Home Medications Medication Instructions Recorded Confirmed aspirin 81 mg tablet,delayed 81 mg PO DAILY 04/24/19 06/11/20 release escitalopram oxalate 20 mg tablet 20 mg PO DAILY tablet 04/24/19 06/11/20 gabapentin 300 mg capsule 600 mg PO TID cap 04/24/19 06/11/20 insulin lispro 100 unit/mL 1 sliding scale dose SUB-Q 04/24/19 06/11/20 subcutaneous solution USEASDIRECTD Veltassa 8.4 g PO DAILY 05/24/20 06/11/20 allopurinol 100 mg PO DAILY 05/24/20 06/11/20 ergocalciferol (vitamin D2) 50,000 mcg PO WEEKLY 05/24/20 06/11/20 [Vitamin D2] midodrine 5 mg PO TID 05/24/20 06/11/20 mirtazapine 15 mg PO HS 05/24/20 06/11/20 Allergies Allergy/AdvReac Type Severity Reaction Status Date / Time Sulfa (Sulfonamide Allergy Mild Hives Verified 06/11/20 16:29 Antibiotics) ibuprofen AdvReac Severe BAD RENAL Verified 06/11/20 16:29 FUNCTION Review of Systems Constitutional: Constitutional: Denies chills, Denies fever(s), Denies headache(s) and Denies weakness Eyes: Eyes: Denies blurry vision ENT: Denies headache(s) and Denies neck pain Cardiovascular: Cardiovascular: Denies chest pain and Denies dyspnea Respiratory: Respiratory: Denies cough and Denies dyspnea Gastrointestinal: Gastrointestinal: Denies abdominal pain, Denies diarrhea, Denies nausea and Denies vomiting Genitourinary: Genitourinary: Denies hematuria and Denies dysuria Musculoskeletal: Musculoskeletal: Denies back pain and Denies neck pain Neurologic: Reports Abnormal speech present, Denies headache(s), Reports tremor(s) and Denies weakness [facility] Past Medical History Medical History (Updated 06/11/20 @ 17:10 by Doris Rashid MD) Anemia in chronic kidney disease Anxiety and depression Autonomic dysfunction CHF (congestive heart failure) Last echocardiogram June 2015: Normal EF of 55%, paradoxical septal motion consistent with post pericardiectomy, mild tricuspid regurgitation, moderate left atrial enlargement Chronic anticoagulation CVA (cerebral vascular accident) With chronic left-sided weakness, 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 The patient is on the renal transplant list at [facility]. Wednesday managed by Dr. Aguiar Fracture, nose, open Glaucoma Hyperlipidemia Memory loss or impairment Myocardial infarction 2003 and 2010 Surgical History Surgical History (Updated 06/11/20 @ 15:51 by Manju Weir PA-C) H/O inguinal hernia repair At age 6 History of bilateral cataract extraction History of heart artery stent X8 prior to CABG History of implantable cardioverter-defibrillator (ICD) insertion (~05/30/20) History of nasal surgery 1988 History of pericardiectomy Hx of CABG 3 vessel CABG [address] [facility] Status post open reduction with internal fixation of fracture Left hand fracture in 1981 Family History Family History Sibling Family history of cardiac disorder Congestive heart failure Sudden cardiac Another sister Acute myocardia
[2020-06-11 13:10] LABS: Glucose Point of Care 90 (65-105)
--- NOTE | 2020-06-11 13:54 | PC.NURSE ---
Pt reports low blood sugar (home pump reads 67). Apple juice offered, will follow up with pt.
--- NOTE | 2020-06-11 14:38 | PC.NURSE ---
Pt reports a blood sugar of 62 per home pump that is no longer trending downward. Pt requests sprite, will follow up with patient again.
--- NOTE | 2020-06-11 15:20 | PC.NURSE ---
Low blood sugar corrected.
--- NOTE | 2020-06-11 15:50 | PM.IMHP ---
H&P: HPI History of Present Illness Date/Time: 06/11/20 15:50 Chief Complaint: Slurred speech. Narrative: This is a 65-year-old male with multiple medical problems including insulin-dependent diabetes, chronic anemia, end-stage renal disease on hemodialysis, coronary artery disease, and short QT syndrome status post ICD insertion on 05/30/2020 at [facility] who presented to the emergency department earlier today from home for evaluation of slurred speech. He had his 2nd Pfizer COVID vaccination 2 days ago on Wednesday morning and felt really good all day. In fact he and his spent most of the day running errands. When they got home that evening his dexcom alerted him to the fact that his glucose had dropped to 90 so he went into the garage to get a soda. The patient's noticed that he seemed to be walking strangely on his way back and he appeared as though he did not feel well. She got him to sit down in a chair where he slumped somewhat on to his side and he was noted to have difficulty speaking, with slurred and garbled speech. She checked his Dexcom and noted that his glucose was 130 thus his symptoms were not secondary to hypoglycemia. His symptoms lasted for about 3 minutes before resolving without recurrence. After speaking with his doctor's office today he was referred to the emergency department. He does not really remember what he was feeling during those 3 minutes but his tells me that she did a quick stroke assessment and she did not notice facial asymmetry, tongue deviation, focal weakness, or pronator drift. He denies current vertigo, auditory and visual changes, focal weakness, and paresthesias (aside from chronic neuropathy from the knees below bilaterally). Review of Systems Review of Systems: Narrative: Twelve systems were reviewed with pertinent positives and negatives as per HPI. He denies headache. No recent cold or flu symptoms. He denies sweats and pallor. No chest pain, pleuritic pain, or palpitations. No known history of cardiac dysrhythmia. Since his pacemaker/defibrillator was inserted last week he has been able to hear his pacemaker in his ears. This was related to his surgeon who was not concerned. No prior history of tinnitus. He denies hearing loss. No nausea or vomiting. Denies blurry vision, polydipsia, and polyuria. His diabetes is much better control now that he is on insulin pump. Except as documented, all other systems were reviewed and are negative. [facility] Past Medical History Medical History (Updated 06/11/20 @ 22:07 by Manju Weir PA-C) Anemia in chronic kidney disease Anxiety and depression Autonomic dysfunction Cerebrovascular accident Post CABG with mild, chronic left-sided weakness. He had a seizure after the stroke. Chronic anticoagulation Congestive heart failure Last echocardiogram June 2015: Normal EF of 55%, paradoxical septal motion consistent with post pericardiectomy, mild tricuspid regurgitation, moderate left atrial enlargement. Diabetic gastroparesis Diabetic nephropathy Diabetic neuropathy Diabetic retinopathy Duodenal ulcer End-stage renal disease on hemodialysis Patient of Dr. Qiana Aguiar. Dialysis on Wednesday, Wednesday, Wednesday. On the renal transplant list at [facility]. Fracture, nose, open (~05/2020) Glaucoma History of deep venous thrombosis Hyperlipidemia Insulin dependent type 2 diabetes mellitus Hemoglobin A1c was 7.7% in November 2018. Memory loss or impairment Myocardial infarction 2003 and 2010. Recurrent syncope (~05/2020) Found to have short QT syndrome, status post PM/ICD insertion. Surgical History Surgical History (Updated 06/11/20 @ 21:58 by Manju Weir PA-C) History of bilateral cataract extraction History of heart artery stent Stent times date (per patient) prior to bypass. History of implantable cardioverter-defibrillator (ICD) insertion (~05/30/20) History of inguinal hernia repair History of nasal surgery (~1988) Histor
--- NOTE | 2020-06-11 16:18 | ADMGEN ---
This patient, Haja Diego, was admitted to [facility] Surg Room 315-01. Patient/family oriented to hospital policies and general routines including ID bracelet, bed and alarms, visiting hours, pain management, procedures, bathroom and other care routines, personal items, smoking policy, room service/diet, and visiting hours. Information on how to activate the Rapid Response Team has been discussed. Patient/Family are encouraged to report perceived risks to care and to ask questions if they do not understand what they are told or what they should do.
[2020-06-11] MEDS: MIDODRINE HCL 2.5 MG TABLET 5 MG PO (22:00)
[2020-06-11] MEDS: GABAPENTIN 300 MG CAPSULE 600 MG PO (22:00)
--- NOTE | 2020-06-11 23:00 | PM.CNNEP ---
Assessment and Plan Assessment and plan (1) End-stage renal disease on hemodialysis: Code(s): N18.6 - End stage renal disease; Z99.2 - Dependence on renal dialysis Status: Acute Assessment and Plan: hd due tomorrow (2) Insulin dependent type 2 diabetes mellitus: Code(s): E11.9 - Type 2 diabetes mellitus without complications; Z79.4 - parts counterman (current) use of insulin Status: Acute (3) TIA (transient ischemic attack): Code(s): G45.9 - Transient cerebral ischemic attack, unspecified Status: Acute Assessment and Plan: consider poss infection/ bactremia (4) Slurred speech: Code(s): R47.81 - Slurred speech Status: Acute (5) Elevated troponin: Code(s): R77.8 - Other specified abnormalities of plasma proteins Status: Acute (6) Syncope and collapse: Code(s): R55 - Syncope and collapse Status: Acute Assessment and Plan: i had stopped the GABAPENTIN WHICH HE DID NOT FEEL WAS HELPIING AT ALL TO CONTROL DM NEUROPATHY AND CONCERN IF THIS MEDICINE COULD BE MAKING HIM WORSE. ALSO HIS MIDODRINE WAS TO BE 10MG TID (7) Contusion of face: Qualifiers: Encounter type: initial encounter Qualified Code(s): S00.83XA - Contusion of other part of head, initial encounter Code(s): S00.83XA - Contusion of other part of head, initial encounter Status: Acute (8) Coronary atherosclerosis: Code(s): I25.10 - Atherosclerotic heart disease of [place] coronary artery without angina pectoris Status: Acute (9) Fracture, nose, open: Onset Date: ~05/2020 Code(s): S02.2XXB - Fracture of nasal bones, initial encounter for open fracture Status: Acute (10) Secondary hypophosphatemia: Code(s): E83.39 - Other disorders of phosphorus metabolism Status: Acute (11) Chronic anticoagulation: Code(s): Z79.01 - snf (current) use of anticoagulants Status: Acute (12) Atherosclerotic heart disease of [place] coronary artery without angina pectoris: Code(s): I25.10 - Atherosclerotic heart disease of [place] coronary artery without angina pectoris Status: Acute History of Present Illness Reason for Consult Consult date: 06/11/20 Chief Complaint Chief complaint: TIA Review of Systems Review of Systems: Narrative: passing out and having jerking / muscular instability. has had several episodes PMFSH Past Medical History Medical History Anemia in chronic kidney disease Anxiety and depression Autonomic dysfunction Cerebrovascular accident Post CABG with mild, chronic left-sided weakness. He had a seizure after the stroke. Chronic anticoagulation Congestive heart failure Last echocardiogram June 2015: Normal EF of 55%, paradoxical septal motion consistent with post pericardiectomy, mild tricuspid regurgitation, moderate left atrial enlargement. Diabetic gastroparesis Diabetic nephropathy Diabetic neuropathy Diabetic retinopathy Duodenal ulcer End-stage renal disease on hemodialysis Patient of Dr. Qiana Aguiar. Dialysis on Wednesday, Wednesday, Wednesday. On the renal transplant list at [facility]. Fracture, nose, open (~05/2020) Glaucoma History of deep venous thrombosis Hyperlipidemia Insulin dependent type 2 diabetes mellitus Hemoglobin A1c was 7.7% in November 2018. Memory loss or impairment Myocardial infarction 2003 and 2010. Recurrent syncope (~05/2020) Found to have short QT syndrome, status post PM/ICD insertion. Surgical History Surgical History History of bilateral cataract extraction History of heart artery stent Stent times date (per patient) prior to bypass. History of implantable cardioverter-defibrillator (ICD) insertion (~05/30/20) History of inguinal hernia repair History of nasal surgery (~1988) History of pericardiectomy History of three
[2020-06-12] VITALS (23 sets, daily range): BP systolic 94–141; BP diastolic 42–74; PULSE 57–81; RESP 16–20; TEMP 35.5–36.7; O2SAT 92–98
--- NOTE | 2020-06-12 06:00 | ECHO_ITS ---
Patient Info Name: Haja Diego Age: 65 years : 1955 Gender: Male Ht: 71 in Wt: 230 lbs BSA: 2.32 m2 HR: 60 bpm BP: 90 / 46 mmHg Heart Rhythm: Sinus Rhythm Technical Quality: Good Exam Date: 06/12/2020 12:06 PM Exam Location: [facility] Pulmonary Exam Room: [facility] Patient Status: Inpatient Admit Date: 06/11/2020 Staff Ordering Physician: Doris Rashid MD Recreation Therapy Aide: Daisy Helms RDCS Attending Provider: Sheela Davis MD Referring Physician: Rachid ACKERMAN; Exam Type: CA echo doppler color flow Study Info Indications - TIA Complete two-dimensional, color flow and Doppler transthoracic echocardiogram is performed. Summary 1. Complete two-dimensional, color flow and Doppler transthoracic echocardiogram is performed. 2. Normal left ventricular size with mild concentric hypertrophy. There is good systolic function of all segments with a calculated ejection fraction of 63% and a visual ejection fraction is 60-65%. No focal wall motion abnormalities. Diastolic dysfunction is present. 3. Left atrial chamber dimension is severely enlarged. 4. Linear artifact in the right atrium suggestive of catheter(s), pacemaker lead(s), or ICD lead(s). 5. There is mild aortic valve calcification without stenosis. 6. There is mild mitral valve regurgitation. 7. There is mild to moderate tricuspid valve regurgitation. 8. Mild pulmonary hypertension, estimated pulmonary arterial systolic pressure is 40 mmHg. 9. Normal sinus rhythm. Left Ventricle Left ventricular chamber dimension is normal. Left ventricular systolic function is normal, estimated at 60-65%. There is mildly increased left ventricular wall thickness. Left ventricular septal wall motion is normal. The left ventricular diastolic function is abnormal. Right Ventricle Right ventricular chamber dimension is normal. Right ventricular systolic function is normal. Left Atria Left atrial chamber dimension is severely enlarged. Right Atria Right atrial chamber dimension is normal. Linear artifact in the right atrium suggestive of catheter(s), pacemaker lead(s), or ICD lead(s). Aortic Valve The aortic valve is trileaflet. There is no aortic valve sclerosis. There is no aortic valve stenosis. There is no aortic valve regurgitation. There is mild aortic valve calcification without stenosis. Pulmonic Valve The pulmonic valve is normal. There is no pulmonic valve stenosis. There is no pulmonic regurgitation. Mitral Valve The mitral valve has calcified annulus. There is no mitral valve stenosis. There is mild mitral valve regurgitation. Tricuspid Valve The tricuspid valve leaflets are normal. There is no significant tricuspid valve stenosis. There is mild to moderate tricuspid valve regurgitation. Mild pulmonary hypertension, estimated pulmonary arterial systolic pressure is 40 mmHg. Pericardium/Pleural The pericardium appears normal. There is no pericardial effusion. Inferior Vena Cava Normal inferior vena cava with >50% collapse upon inspiration consistent with Empty right atrial pressure, 10 mmHg. Aorta The aortic root size at the sinus of Valsalva is normal. The prox ascending aorta size is normal. Left Ventricular Outflow Tract Name Value Normal LVOT 2D
[2020-06-12 06:25] LABS: Hemoglobin A1C 6.3 % (<5.7)
[2020-06-12 06:35] LABS: Anion Gap 12 mmol/L (8-16); Blood Urea Nitrogen 57 mg/dL (9-20); Calcium 8.6 mg/dL (8.4-10.2); Carbon Dioxide 27 mmol/L (22-30); Chloride 102 mmol/L (98-107); Estimated CRCL calculation 9 ml/min; Estimated Glomerular Filt Rate 5; Glucose 92 mg/dL (75-110); Magnesium 1.9 mg/dL (1.6-2.3); Phosphorus 6.2 mg/dL (2.5-4.5); Potassium 3.9 mmol/L (3.4-5.0); Sodium 141 mmol/L (137-145)
[2020-06-12 06:46] LABS: Hematocrit 24.9 % (42.0-52.0); Mean Corpuscular HGB Conc 32.1 g/dl (32-36); Mean Corpuscular Hemoglobin 34.5 pg (26-34); Mean Corpuscular Volume 107.3 fl (80-100); Mean Platelet Volume 11.5 fl (7.4-10.4); Platelet Count Result 176 k/mm3 (150-375); Red Blood Count 2.32 M/mm3 (4.6-6.20); White Blood Count 6.5 K/mm3 (4.5-10.0)
[2020-06-12 08:09] LABS: Hepatitis B Surface Antigen Negative (Negative)
[2020-06-12 08:15] LABS: HAV RESULT Negative (Negative); Hepatitis B Core IgM Result Negative (Negative)
[2020-06-12 08:27] LABS: Hepatitis C Virus Antibody Negative (Negative)
[2020-06-12] MEDS: SIMVASTATIN 20 MG TABLET 40 MG PO (09:44)
[2020-06-12] MEDS: ESCITALOPRAM OXALATE 10 MG TABLET 20 MG PO (09:45)
[2020-06-12] MEDS: MIDODRINE HCL 10 MG TABLET PO ×2 (09:46→12:54)
[2020-06-12] MEDS: PANTOPRAZOLE 40 MG TABLET PO (09:46)
[2020-06-12] MEDS: ASPIRIN 81 MG ENTERIC TABLET PO (09:47)
--- NOTE | 2020-06-12 14:32 | WPDNEURCNPN ---
Assessment and Plan Assessment and plan (1) End-stage renal disease on hemodialysis: Code(s): N18.6 - End stage renal disease; Z99.2 - Dependence on renal dialysis Status: Acute (2) TIA (transient ischemic attack): Code(s): G45.9 - Transient cerebral ischemic attack, unspecified Status: Acute Additional Plan complain of slurred speech of short duration all the studies are being carried out for consideration of a possible TIA though it is extremely unlikely in the meantime medication will be continued as such Consult date: 06/12/20 Time Seen: 11:00 HPI: Haja Diego is a 65 year old male 65 years old male has been admitted to [facility] through the emergency room for the complaints of slurred speech in addition to the ongoing history of 1. Insulin-dependent diabetes mellitus 2. Chronic anemia 3. End-stage renal disease for which patient is on hemodialysis 4. Coronary artery disease with documented short cue to syndrome for which patient has had the ICD insertion on May 30, 2020 at [facility] patient recently has received the 2nd COVID vaccination 48 hours ago he was alerted by the DEXA that his glucose has dropped to 90 patient's noted that his speech was somewhat slurred and he was not feeling well and subsequently he slumped to his 1 side and had some difficulties in his speech initially the PMD was called and he was referred to the emergency for further evaluation. Thatch does carry the diagnosis of anemia with chronic kidney disease,depression, autonomic dysfunction congestive heart failure anxiety with depression and all the complication diabetes with nephropathy gastroparesis neuropathy retinopathy. evaluation as documented negative CT scan of the head negative carotid Doppler studies and echocardiogram at this stage is pending, patient at this stage is receiving aspirin 81 mg daily with the subtle a prime 20 mg daily mirtazapine 15 mg at HS pantoprazole 40 mg every morning in addition to simvastatin 40 mg daily and micro drain 10 mg t.i.d. for the autonomic dysfunction with orthostatic symptomatology Review of Systems Review of Systems: All systems reviewed & are unremarkable except as noted in HPI and below [facility] Past Medical History Medical History Anemia in chronic kidney disease Anxiety and depression Autonomic dysfunction Cerebrovascular accident Post CABG with mild, chronic left-sided weakness. He had a seizure after the stroke. Chronic anticoagulation Congestive heart failure Last echocardiogram June 2015: Normal EF of 55%, paradoxical septal motion consistent with post pericardiectomy, mild tricuspid regurgitation, moderate left atrial enlargement. Diabetic gastroparesis Diabetic nephropathy Diabetic neuropathy Diabetic retinopathy Duodenal ulcer End-stage renal disease on hemodialysis Patient of Dr. Qiana Aguiar. Dialysis on Wednesday, Wednesday, Wednesday. On the renal transplant list at [facility]. Fracture, nose, open (~05/2020) Glaucoma History of deep venous thrombosis Hyperlipidemia Insulin dependent type 2 diabetes mellitus Hemoglobin A1c was 7.7% in November 2018. Memory loss or impairment Myocardial infarction 2003 and 2010. Recurrent syncope (~05/2020) Found to have short QT syndrome, status post PM/ICD insertion. Surgical History Surgical History History of bilateral cataract extraction History of heart artery stent Stent times date (per patient) prior to bypass. History of implantable cardioverter-defibrillator (ICD) insertion (~05/30/20) History of inguinal hernia repair History of nasal surgery (~1988) History of pericardiectomy History of three vessel coronary artery bypass (~2010) [facility]. Status post open reduction with internal fixation of fracture Left hand fracture in 1981. Family History Family History (Reviewed 06/12/20 @ 14:37 by Wilfred Chaudhary
--- NOTE | 2020-06-12 14:59 | PM.PNNEP ---
Progress Note: A&P Assessment and Plan (1) End-stage renal disease on hemodialysis: Code(s): N18.6 - End stage renal disease; Z99.2 - Dependence on renal dialysis Status: Acute (2) Insulin dependent type 2 diabetes mellitus: Code(s): E11.9 - Type 2 diabetes mellitus without complications; Z79.4 - terminal operations supervisor (current) use of insulin Status: Acute (3) TIA (transient ischemic attack): Code(s): G45.9 - Transient cerebral ischemic attack, unspecified Status: Acute (4) Syncope and collapse: Code(s): R55 - Syncope and collapse Status: Acute (5) Slurred speech: Code(s): R47.81 - Slurred speech Status: Acute (6) Syncope: Code(s): R55 - Syncope and collapse Status: Acute (7) Coronary atherosclerosis: Code(s): I25.10 - Atherosclerotic heart disease of [place] coronary artery without angina pectoris Status: Acute (8) Fracture, nose, open: Onset Date: ~05/2020 Code(s): S02.2XXB - Fracture of nasal bones, initial encounter for open fracture Status: Acute (9) Secondary hypophosphatemia: Code(s): E83.39 - Other disorders of phosphorus metabolism Status: Acute Additional Plan 1. still has to complete hd -communicated with [facility] for the hospital- they are on te way and hopefully will have him going within the hour. 2. told pt to stop using Gabapentin -stick with just plan Tylennol. 3. bp soft- incr Midodrine dose. if he isn'[t able to get dialysis here today, i called [facility] AND THEY CAN TAKE HIM TOMORROW AT 915AM. Time Spent With Patient Time with patient: less than 15 minutes Subjective Date/time seen: 06/12/20 14:09- at bedside and interrogaters for aicd/ pm combo are here. no Further episodes Exam Narrative: Exam Narrative: nad cvs-rrr w/o m/g/r lungs- cta bilat ext- no c/c/e chest- aicd/pm site intact without infection or bleeding Const: General: cooperative Objective Data Vital Signs Vital Signs: Vital Signs - 24 hr 06/11/20 15:45 06/11/20 16:33 06/11/20 20:00 Temperature 36.8 C Pulse Rate 60 63 58 L Respiratory Rate 12 18 20 Blood Pressure 122/69 Pulse Oximetry 100 100 97 06/11/20 22:00 06/12/20 00:00 06/12/20 04:00 Temperature 36.5 C Pulse Rate 58 L 60 60 Respiratory Rate 20 Blood Pressure 90/46 L Pulse Oximetry 97 06/12/20 06:00 06/12/20 14:00 Temperature 36.7 C 36.7 C Pulse Rate 63 57 L Respiratory Rate 20 16 Blood Pressure 94/42 L 121/63 Pulse Oximetry 98 96 Intake/Output Intake/Output: Intake & Output 06/09/20 06/10/20 06/11/20 06/12/20 23:59 23:59 23:59 23:59 Intake Total 550 680 Balance 550 680 Meds/Results Medications: Active Medications Generic Name Dose Route Start Last Admin Trade Name Freq PRN Reason Stop Dose Admin Aspirin 81 mg 06/12/20 09:00 06/12/20 09:47 Aspirin 81 Mg Enteric Tablet PO 81 mg DAILY ESTHER Administration Dextrose 12.5 gm 06/11/20 22:08 Dextrose 50% 25 Gm/50 Ml Syringe IV PUSH PRN PRN Hypoglycemia Protocol Ergocalciferol 50,000 unit 06/16/20 09:00 Ergocalciferol 50,000 Unit Capsule PO [email or web address]@[id number] ESTHER Escitalopram Oxalate 20 mg 06/12/20 09:00 06/12/20 09:45 Escitalopram Oxalate 10 Mg Tablet PO 20 mg DAILY ESTHER Administration Glucagon 1 mg 06/11/20 22:08 Glucagon For Inj 1 Mg Vial IM PRN PRN Hypoglycemia Protocol Glucose 15 gm 06/11/20 22:08 Glucose Oral Gel 15 Gm Of Glucse In 37.5 Gm Tube PO PRN PRN Hypoglycemia Protocol Dextrose 1,000 mls @ 100 mls/hr 06/11/20 22:08 Dextrose 5% 1,000 Ml IVPB PRN PRN Hypoglycemia Protocol Midodrine 10 mg 06/12/20 09:00 06/12/20 12:54 Midodrine Hcl 10 Mg Tablet PO 10 mg TID ESTHER Administration Mirtazapine 15 mg 06/11/20 21:00 06/11/20 22:01 Mirtazapine 15 Mg Tablet PO Not Given HS ESTHER Non-Formulary Medication 1
--- NOTE | 2020-06-12 16:30 | PC.NURSE ---
Patient to dialysis treatment room at 1630.
--- NOTE | 2020-06-12 17:39 | PM.DS ---
DS: Admitting Diagnosis Admitting Diagnosis Admitting Diagnosis: TIA DS: Discharge Diagnosis Discharge Diagnosis (1) End-stage renal disease on hemodialysis: Code(s): N18.6 - End stage renal disease; Z99.2 - Dependence on renal dialysis Status: Acute (2) Insulin dependent type 2 diabetes mellitus: Code(s): E11.9 - Type 2 diabetes mellitus without complications; Z79.4 - residential (current) use of insulin Status: Acute (3) TIA (transient ischemic attack): Code(s): G45.9 - Transient cerebral ischemic attack, unspecified Status: Acute (4) Elevated troponin: Code(s): R77.8 - Other specified abnormalities of plasma proteins Status: Acute (5) Syncope and collapse: Code(s): R55 - Syncope and collapse Status: Acute DS: Summary Hospital Course Reason for hospitalization: slurred speech Hospital Course: This is a 65-year-old male with multiple medical problems including insulin-dependent diabetes, chronic anemia, end-stage renal disease on hemodialysis, coronary artery disease, and short QT syndrome status post ICD insertion on 05/30/2020 at [facility] who presented to the emergency department earlier today from home for evaluation of slurred speech. He had his 2nd Pfizer COVID vaccination 2 days ago on Wednesday morning and felt really good all day. In fact he and his spent most of the day running errands. When they got home that evening his dexcom alerted him to the fact that his glucose had dropped to 90 so he went into the garage to get a soda. The patient's noticed that he seemed to be walking strangely on his way back and he appeared as though he did not feel well. She got him to sit down in a chair where he slumped somewhat on to his side and he was noted to have difficulty speaking, with slurred and garbled speech. She checked his Dexcom and noted that his glucose was 130 thus his symptoms were not secondary to hypoglycemia. His symptoms lasted for about 3 minutes before resolving without recurrence. After speaking with his doctor's office today he was referred to the emergency department. He does not really remember what he was feeling during those 3 minutes but his tells me that she did a quick stroke assessment and she did not notice facial asymmetry, tongue deviation, focal weakness, or pronator drift. He denies current vertigo, auditory and visual changes, focal weakness, and paresthesias (aside from chronic neuropathy from the knees below bilaterally). # slurred speech: transiet. with complete resolution fos ymptoms. ct head with no acute findings. mri could not be done due to pacemaker. no hypoglycemia. on aspirin, statin neuroogy evaluated. carotid doppler neative. echo reviewed and okay. discussed with neurology. will maintain on apsirin and statin. he remained asymptomatic. no focal deficits on examination at the time of discahrge. hew ill fu with neurolgy as op basis. # ESRD on HD. received inpatient HD # Inslin dependent type 2 DM: emt intermediate insulin use with insulin pump and dexcom # Anemia of chronic kidney diase # srecent pacemaker and defibrillator placement. pacemaker interrogation done during the visit with no new events noted. pvcs n oted whichwas simliar to previously noted. contacted dr. marquez's office during the visit with no respopnse. patient egaer to go home. patient asympatoatic with resolutio of symptoms. he will closely follwo up with his pcp and neurologist Status at Discharge Functional status at discharge: independent ambulation Overall status at discharge: patient is back to baseline Time Spent with Patient Time attestation: Total time spent providing and/or coordinating discharge services:45 mins Exam Narrative: Exam Narrative: General: Well-developed male sitting up in bed no distress. HEENT: Healing laceration on the bridge of the nose from fall and fracture last month. PERRL, EOMI. Sclerae anicteric. Oral mucosa moist. Edentulous.
--- NOTE | 2020-06-12 21:25 | PC.NURSE ---
Patient was discharged at 2119. Paper work was given and signed. No further questions at this time. is picking patient up.
== END 2020-06-12 21:25 | disposition home or self-care (01) ==
LOC: ANHED 12:04 → ANH3MEDSUR 17:10
PROVIDERS: Internal Medicine Nephrology; Physician Assistant; Admitting Provider Family Medicine; Emergency Provider Emergency Medicine; PCP Internal Medicine; Visit Provider Internal Medicine
DX: G45.9 Transient cerebral ischemic attack, unspecified (principal); R47.81 Slurred speech; N18.6 End stage renal disease; I13.2 Hypertensive heart and chronic kidney disease with heart failure and with stage 5 chronic kidney disease, or end stage renal disease; E11.22 Type 2 diabetes mellitus with diabetic chronic kidney disease; I50.9 Heart failure, unspecified; R77.8 Other specified abnormalities of plasma proteins; D63.1 Anemia in chronic kidney disease; I25.10 Atherosclerotic heart disease of native coronary artery without angina pectoris; I25.2 Old myocardial infarction; Z87.891 Personal history of nicotine dependence; Z99.2 Dependence on renal dialysis; Z95.810 Presence of automatic (implantable) cardiac defibrillator; Z79.899 Other long term (current) drug therapy; Z79.4 Long term (current) use of insulin; E11.42 Type 2 diabetes mellitus with diabetic polyneuropathy; R55 Syncope and collapse
CPT/HCPCS: 36415; 70450; 71046; 80048; 80074; 82948; 83036; 83735; 84100; 84484; 85025; 85027; 85610; 85730; 93005; 93306; 93880; 99285; A9270; G0257; G0378; J7030

== ENCOUNTER 2021-02-01 18:57 | Emergency (ER) | payer MEDICARE, OTHER, SELFPAY ==
[2021-02-01] VITALS (29 sets, daily range): BP systolic 92–133; BP diastolic 51–70; PULSE 67–81; RESP 12–24; TEMP 36.6–37.1; O2SAT 94–100
--- NOTE | ~2021-02-01 | CT_ITS ---
EXAMINATION: CT brain wo con INDICATION: Transient alteration of awareness COMPARISON: None TECHNIQUE: Standard unenhanced head CT. The dose-length product (DLP) was 605.33 mGy-cm. The mA was a djusted according to patient size. Iterative reconstruction technique was employed. FINDINGS: There is no acute intraparenchymal hemorrhage. No evidence of mass lesion. No evidence of a cute infarction. There is mild periventricular and subcortical hypodensity probably related to small vessel ischemic disease. There is mild prominence of the sulci and ventricles related to cerebral atr ophy. Intracranial calcified cerebral atherosclerosis is noted. There are no extra-axial collections. There is no mass effect or midline shift. Changes in the globes are likely from ocular lens surgery. The visualized sinuses and mastoid air cells are well aerated. IMPRESSION: 1. No acute intracranial abnormality. 2. Age related findings. Reviewed, dictated and finalized at location A. MASTER
--- NOTE | 2021-02-01 19:08 | ECG_ITS ---
Measurements Intervals [place] Rate: 76 P: -3 VA: 268 QRS: 142 QRSD: 143 T: 18 QT: 434 QTc: 488 Interpretive Statements SINUS RHYTHM WITH FIRST DEGREE AV BLOCK RIGHT BUNDLE BRANCH BLOCK LEFT POSTERIOR FASCICULAR BLOCK BASELINE ARTIFACT- II, III, AVF ABNORMAL ECG Electronically Signed On 02-02-2021 14:39:25 AUCTION ASSISTANT by Destin Barragan D.O.
[2021-02-01 19:42] LABS: Basophils Absolute Auto 0.1 K/mm3 (0.0-0.1); Basophils Percent Auto 0.8 % (0.2-1.2); Eosinophils Absolute Auto 0.3 K/mm3 (0-0.3); Eosinophils Percent Auto 2.8 % (0-4.4); Hematocrit 32.4 % (42.0-52.0); Hemoglobin 10.9 g/dL (14.0-18.0); Immature Granulocyte Absolute 0.03 K/mm3 (0.00-0.031); Immature Granulocyte Percent A 0.3 % (0-0.5); Lymphocytes Absolute Auto 1.59 K/mm3 (0.9-3.2); Lymphocytes Percent Auto 16.3 % (18.3-44.2); Mean Corpuscular HGB Conc 33.6 g/dl (32-36); Mean Corpuscular Hemoglobin 36.5 pg (26-34); Mean Corpuscular Volume 108.4 fl (80-100); Mean Platelet Volume 10.3 fl (7.4-10.4); Monocytes Absolute Auto 0.9 K/mm3 (0.1-0.6); Monocytes Percent Auto 8.8 % (2.6-8.5); Neutrophils Absolute Auto 6.9 K/mm3 (1.3-6.7); Platelet Count Result 168 k/mm3 (150-375); Red Blood Count 2.99 M/mm3 (4.6-6.20); Red Cell Distribution Width 12.7 % (11.5-14.5); White Blood Count 9.7 K/mm3 (4.5-10.0)
[2021-02-01 19:51] LABS: Anion Gap 16 mmol/L (8-16); Blood Urea Nitrogen 59 mg/dL (9-20); Calcium 9.1 mg/dL (8.4-10.2); Carbon Dioxide 24 mmol/L (22-30); Chloride 96 mmol/L (98-107); Estimated Glomerular Filt Rate 6; Glucose 243 mg/dL (65-110); Potassium 5.1 mmol/L (3.4-5.0); Sodium 136 mmol/L (137-145)
--- NOTE | 2021-02-01 19:53 | ED.DIZZY ---
HPI - Dizziness General Chief Complaint: Syncope Stated Complaint: near syncope Time Seen by Provider: 02/01/21 19:15 Source: patient and family Mode of arrival: EMS Limitations: clinical condition History of Present Illness HPI Narrative: 65-year-old male Dialysis patient last treatment yesterday, also has an AICD and follows with Dr. Redding Here for an episode of dizziness and altered mental status Patient says that last night he was basically up all night due to his restless legs not allowing him to sleep and then was out shopping with his all day and came home feeling very tired and fatigue He was down in the basement doing something in his he came upstairs according to his something looked off and he complained that he was basically extremely fatigued He put his head down on the kitchen counter for a moment and then proceeded to walk to another room and leaned over the back of a chair At some point he told his I am going to pass out, I am going to pass out but according to her he did not do that What he did instead though was get shaky all over and become verbally unresponsive to her for at least a couple of minutes She called 911 and by the time they arrived he was mostly back to normal and objecting to being brought to the hospital Several months ago around the time that he got his pacer AICD placed there was a similar episode to this Related Data Home Medications Medication Instructions Recorded Confirmed aspirin 81 mg tablet,delayed 81 mg PO DAILY 04/24/19 11/09/20 release escitalopram oxalate 20 mg tablet 20 mg PO DAILY tablet 04/24/19 11/09/20 gabapentin 300 mg capsule 600 mg PO TID cap 04/24/19 11/09/20 insulin lispro 100 unit/mL 1 sliding scale dose SUB-Q 04/24/19 11/09/20 subcutaneous solution USEASDIRECTD [place] 8.4 g PO DAILY 05/24/20 11/09/20 allopurinol 100 mg PO DAILY 05/24/20 11/09/20 ergocalciferol (vitamin D2) 50,000 mcg PO WEEKLY 05/24/20 11/09/20 [Vitamin D2] mirtazapine 15 mg PO HS 05/24/20 11/09/20 Allergies Allergy/AdvReac Type Severity Reaction Status Date / Time Sulfa (Sulfonamide Allergy Mild Hives Verified 11/05/20 09:27 Antibiotics) ibuprofen AdvReac Severe BAD RENAL Verified 11/05/20 09:27 FUNCTION Review of Systems Review of Systems: All systems reviewed & are unremarkable except as noted in HPI and below Constitutional: Constitutional: Reports no additional constitutional complaints, Denies chills, Reports fatigue, Denies fever(s), Denies headache(s) and Reports weakness Eyes: Eyes: Reports no additional eye complaints and Denies change in vision ENT: Denies headache(s) and Denies sore throat Cardiovascular: Cardiovascular: Denies chest pain and Denies dyspnea Respiratory: Respiratory: Denies cough and Denies dyspnea Gastrointestinal: Gastrointestinal: Denies abdominal pain, Denies diarrhea and Denies vomiting Genitourinary: Genitourinary: Denies dysuria and Denies urinary frequency Musculoskeletal: Musculoskeletal: Reports myalgias, Denies deformity, Denies arthralgias, Denies joint swelling, Reports muscle cramps and Denies numbness Integumentary/Breasts: Skin/Breast: Denies rash and Denies wounds Neurologic: Reports dizziness, Reports syncope, Denies headache(s), Denies focal weakness, Denies numbness and Reports weakness Psychiatric: Psychiatric: Reports no additional psychiatric complaints Endocrine: Endocrine: Reports no additional endocrine complaints Hematologic/Lymphatic: Hematologic/Lymphatic: Reports no additional hematologic/lymphatic complaints Allergic/Immunologic: Allergic/Immunologic: Reports no additional allergic/immunologic complaints PMFSH Past Medical History Medical History Anemia in chronic kidney disease Anxiety and depression Autonomic dysfunction Cerebrovascular accident Post CABG with mild, chronic left-sided weakness. He had a seizure after
--- NOTE | 2021-02-01 21:20 | PC.NURSE ---
Patient being taken to CT via stretcher.
== END 2021-02-01 23:25 | disposition home or self-care (01) ==
PROVIDERS: Emergency Provider Emergency Medicine; PCP Internal Medicine
DX: R56.9 Unspecified convulsions (principal); N18.6 End stage renal disease; E11.22 Type 2 diabetes mellitus with diabetic chronic kidney disease; F41.9 Anxiety disorder, unspecified; F32.A Depression, unspecified; I69.359 Hemiplegia and hemiparesis following cerebral infarction affecting unspecified side; I50.9 Heart failure, unspecified; E11.40 Type 2 diabetes mellitus with diabetic neuropathy, unspecified; E11.319 Type 2 diabetes mellitus with unspecified diabetic retinopathy without macular edema; E78.5 Hyperlipidemia, unspecified; I25.2 Old myocardial infarction; Z95.1 Presence of aortocoronary bypass graft; Z99.2 Dependence on renal dialysis; Z86.718 Personal history of other venous thrombosis and embolism; Z87.891 Personal history of nicotine dependence; Z95.810 Presence of automatic (implantable) cardiac defibrillator; Z79.82 Long term (current) use of aspirin; Z79.899 Other long term (current) drug therapy; Z79.4 Long term (current) use of insulin; Z88.2 Allergy status to sulfonamides
CPT/HCPCS: 36415; 70450; 80048; 85025; 93005; 99284

== ENCOUNTER 2021-03-11 14:20 | Emergency (ER) | payer MEDICARE, OTHER, SELFPAY ==
--- NOTE | 2021-03-11 14:51 | PC.NURSE ---
Patient had 1L normal saline in total prior to time of
--- NOTE | 2021-03-11 15:02 | ED.GENADULT ---
HPI - General Adult General Chief complaint: Cardiac Arrest/CPR Stated complaint: Cardiac arrest History of Present Illness HPI narrative: Patient is a 66-year-old male who presents ER caress. Apparently patient answered the door at his home and then walked off. He was out of sight for 2 minutes before family found him on the ground. Bystander CPR initiated. EMS arrived and intubated the patient and began performing ACLS protocol. Received multiple rounds of epinephrine. Blood sugar was 171. Patient received 3 shocks from his implanted defibrillator. End-tidal CO2 was 50 prior to arrival. After arrival to the ER ET tube position confirmed by the ER physician. ACLS protocol continued. According to patient had dialysis yesterday. She had not been complaining of any recent chest pain or shortness of breath. He had had some recent issues with possible seizure activity and was scheduled to follow-up with a neurologist. Related Data Home Medications Medication Instructions Recorded Confirmed aspirin 81 mg tablet,delayed 81 mg PO DAILY 04/24/19 11/09/20 release escitalopram oxalate 20 mg tablet 20 mg PO DAILY tablet 04/24/19 11/09/20 gabapentin 300 mg capsule 600 mg PO TID cap 04/24/19 11/09/20 insulin lispro 100 unit/mL 1 sliding scale dose SUB-Q 04/24/19 11/09/20 subcutaneous solution USEASDIRECTD Veltassa 8.4 g PO DAILY 05/24/20 11/09/20 allopurinol 100 mg PO DAILY 05/24/20 11/09/20 ergocalciferol (vitamin D2) 50,000 mcg PO WEEKLY 05/24/20 11/09/20 [Vitamin D2] mirtazapine 15 mg PO HS 05/24/20 11/09/20 Allergies Allergy/AdvReac Type Severity Reaction Status Date / Time Sulfa (Sulfonamide Allergy Mild Hives Verified 11/05/20 09:27 Antibiotics) ibuprofen AdvReac Severe BAD RENAL Verified 11/05/20 09:27 FUNCTION Review of Systems Review of Systems: ROS unobtainable: Yes unobtainable due to medical condition PMFSH Past Medical History Medical History Anemia in chronic kidney disease Anxiety and depression Autonomic dysfunction Cerebrovascular accident Post CABG with mild, chronic left-sided weakness. He had a seizure after the stroke. Chronic anticoagulation Congestive heart failure Last echocardiogram June 2015: Normal EF of 55%, paradoxical septal motion consistent with post pericardiectomy, mild tricuspid regurgitation, moderate left atrial enlargement. Diabetic gastroparesis Diabetic nephropathy Diabetic neuropathy Diabetic retinopathy Duodenal ulcer End-stage renal disease on hemodialysis Patient of Dr. Qiana Aguiar. Dialysis on Wednesday, Wednesday, Wednesday. On the renal transplant list at [facility]. Fracture, nose, open (~05/2020) Glaucoma History of deep venous thrombosis Hyperlipidemia Insulin dependent type 2 diabetes mellitus Hemoglobin A1c was 7.7% in November 2018. Memory loss or impairment Myocardial infarction 2003 and 2010. Recurrent syncope (~05/2020) Found to have short QT syndrome, status post PM/ICD insertion. Surgical History Surgical History History of bilateral cataract extraction History of heart artery stent Stent times date (per patient) prior to bypass. History of implantable cardioverter-defibrillator (ICD) insertion (~05/30/20) History of inguinal hernia repair History of nasal surgery (~1988) History of pericardiectomy History of three vessel coronary artery bypass (~2010) [facility]. Status post open reduction with internal fixation of fracture Left hand fracture in 1981. Family History Family History Sibling Family history of cardiac disorder Acute myocardial infarction Sister Leonie [id number] short QT syndrome 1 sister, nieces and nephews the specific gene mutation is uncertain Congestive heart failure Sudden cardiac Another sister Mother Dece
[2021-03-11 15:04] LABS: Glucose Point of Care 220 mg/dl (65-105)
[2021-03-11 15:04] LABS: Glucose Point of Care 223 mg/dl (65-105)
--- NOTE | 2021-03-11 15:14 | ECG_ITS ---
Measurements Intervals [place] Rate: 63 P: CO: 0 QRS: 111 QRSD: 236 T: 0 QT: 457 QTc: 468 Interpretive Statements ELECTRONIC VENTRICULAR PACEMAKER WITH INHIBITION CONSIDER ELECTRONIC VENTRICULAR PACEMAKER MALFUNCTION: NONCAPTURE LEFT BUNDLE BRANCH BLOCK BASELINE ARTIFACT- I, II, III, AVR, AVL, AVF, V1-V6 NO FURTHER INTERPRETATION IS POSSIBLE ABNORMAL ECG Electronically Signed On 03-11-2021 16:04:05 COIL BUILDER by Destin Barragan D.O.
--- NOTE | 2021-03-11 15:18 | PC.NURSE ---
Spoke with [facility] [employer] - pt released, Dr Muhammad will sign certificate
--- NOTE | 2021-03-11 20:38 | PC.NURSE ---
Pt will be released to [facility] per family .
== END 2021-03-11 16:29 | disposition expired ==
PROVIDERS: Emergency Provider Emergency Medicine; PCP Internal Medicine
DX: I46.9 Cardiac arrest, cause unspecified (principal); E11.22 Type 2 diabetes mellitus with diabetic chronic kidney disease; N18.6 End stage renal disease; Z99.2 Dependence on renal dialysis; D63.1 Anemia in chronic kidney disease; I50.9 Heart failure, unspecified; E11.43 Type 2 diabetes mellitus with diabetic autonomic (poly)neuropathy; E11.21 Type 2 diabetes mellitus with diabetic nephropathy; E11.40 Type 2 diabetes mellitus with diabetic neuropathy, unspecified; E11.319 Type 2 diabetes mellitus with unspecified diabetic retinopathy without macular edema; K31.84 Gastroparesis; H40.9 Unspecified glaucoma; I25.2 Old myocardial infarction; F41.9 Anxiety disorder, unspecified; F32.9 Major depressive disorder, single episode, unspecified; Z98.42 Cataract extraction status, left eye; Z98.41 Cataract extraction status, right eye; Z95.5 Presence of coronary angioplasty implant and graft; Z95.810 Presence of automatic (implantable) cardiac defibrillator; Z79.82 Long term (current) use of aspirin; Z79.4 Long term (current) use of insulin; Z87.891 Personal history of nicotine dependence; I44.7 Left bundle-branch block, unspecified
CPT/HCPCS: 82948; 92950; 93005; 99285; J0171; J0282; J1815; J7030